=== PATIENT | male | born 1950 | race Caucasian/White ===

== ENCOUNTER 2017-07-11 12:39 | Emergency (ER) | payer OTHER, MEDICARE, SELFPAY ==
[2017-07-11 12:40] VITALS: BP 174/106; PULSE 88; RESP 16; TEMP 36.2; O2SAT 99; BMI 33.5
[2017-07-11 12:42] VITALS: O2SAT 99
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
[2017-07-11 13:30] VITALS: BP 169/84; PULSE 77; RESP 16; O2SAT 99
== END 2017-07-11 13:30 | disposition home or self-care (01) ==
LOC: ED 13:29
PROVIDERS: Emergency Provider Emergency Medicine; Family Provider Family Medicine; PCP Family Medicine
DX: Z00.00 Encounter for general adult medical examination without abnormal findings (principal); V53.5XXA Driver of pick-up truck or van injured in collision with car, pick-up truck or van in traffic accident, initial encounter; Y93.I9 Activity, other involving external motion; Y92.410 Unspecified street and highway as the place of occurrence of the external cause; Y99.8 Other external cause status
CPT/HCPCS: 99284

== ENCOUNTER → 2017-07-23 09:06 | Outpatient (CLI) | payer MEDICARE, OTHER, SELFPAY ==
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
== END ==
PROVIDERS: Family Provider Family Medicine; PCP Family Medicine; Visit Provider Family Medicine
DX: M54.5 Low back pain (principal)
CPT/HCPCS: 72110

== ENCOUNTER 2017-11-01 09:30 | Outpatient (RCR) | payer MEDICARE, OTHER, SELFPAY ==
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
--- NOTE | 2017-11-28 09:20 | HP.PT.NRP ---
HP - Discharge Summary (1) - Patient Information LO SHUKLA was seen in my office for initial evaluation on 10/12/17. The following Plan of Care was established for this patient: Initial Frequency: 2x /Week Initial Duration: 4 Weeks - Anticipated Interventions Patient/Client Instruction: Educate patient on: Benefits of Fitness Program For the Purpose of:: To improve ability to perform ADL's Therapeutic Exercise to Include: Strength training, Endurance training, Body mechanics, Postural training, Flexibilty training, Gait and locomotor training, Dynamic Lumbar Stabilization, Bud Exercises For the Purpose of:: To improve muscle performance and motor function TENS: Yes Cryotherapy (ice pack, ice massage): Yes Thermo therapy (hot pack): Yes Ultrasound (thermal/non thermal): Yes For the Purpose of:: To decrease pain This patient was last seen in our office . Pertinent comments regarding their Physical therapy will appear below: Patient has not attended physical therapy in over 30 days and is appropriate for d/c- return to MD as needed. At this point I will be discontinuing this patient from physical therapy. I would be happy to see this patient again in the future if found appropriate by the physician. Thank you! Minoo Marroquin
== END 2017-11-01 19:00 | disposition home or self-care (01) ==
LOC: PT 09:30
PROVIDERS: Family Provider Family Medicine; PCP Family Medicine; Visit Provider Family Medicine
DX: M54.5 Low back pain (principal)
CPT/HCPCS: 97035; 97110; 97162

== ENCOUNTER 2018-06-28 12:42 | Inpatient (IN) | payer MEDICARE, OTHER, SELFPAY ==
[2018-06-28] VITALS (11 sets, daily range): BP systolic 99–141; BP diastolic 62–93; PULSE 48–80; RESP 16–18; TEMP 36.4–37; O2SAT 98–100; BMI 29.7; BMI 28.9
--- NOTE | 2018-06-28 08:00 | COLBX_PTH ---
PATIENT: LO SHUKLA LOC: [facility] U#:[id number] AGE/SX: 68/M ROOM: MT313 RE06/28/[address]: Dr. Guillaume Berg MD : 1950 BED: 1 DIS: 07/03/2018 SPEC #: [id number] RECD: 06/28/18 10:53 STATUS: SHARRON RECruz #: [id number] MELI: 06/28/18 08:[address]: Guillaume Berg DEPT: SURGICAL PATHOLOGY RECD BY: Yovany Miller ENTERED: 06/28/18 12:13 SP TYPE: COLON BX OTHR DR: Dr. 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 AM:zulma 07/01/18 MICROSCOPIC DESCRIPTION Slides are reviewed. GROSS DESCRIPTION Received is one container labeled with the patient name and designated colon mass biopsy at 80 cm. The specimen consists of multiple irregular fragments of light hollis soft tissue that in aggregate measure 2 x 1 x 0.1 cm. The specimen is totally submitted in one cassette. / AM:sp 06/29/18 TC: 0 CPT: 15058
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
--- NOTE | 2018-06-28 08:32 | CT_ITS ---
STUDY: CT ABDOMEN AND PELVIS WITH CONTRAST REASON FOR EXAM: Male, 68 years old. Colonic mass marked with a metallic clip during colonoscopy. RADIATION DOSAGE (If Supplied By Facility): CTDIvol = ( 15.50 ) mGy, DLP = ( 959.53 ) mGycm TECHNIQUE: Transaxial images were obtained from the dome of the diaphragm to the symphysis pubis with oral contrast. 100ML ml of Isovue 300 contrast was administered. Sagittal and coronal images were reconstructed. Individualized dose optimization techniques were used for this CT. COMPARISON: None. FINDINGS: The visualized lung bases are unremarkable. The visualized portions of the heart are within normal limits. There is decreased attenuation of the liver consistent with steatosis. Normal gallbladder and extrahepatic biliary system. Normal spleen. Normal pancreas. Normal bilateral adrenal glands. Normal right kidney. Normal left kidney. There is a small hiatal hernia. There is a 2 cm x 3 cm diverticulum in the second portion of the duodenum. A metallic clip is seen in the rectosigmoid junction. There is focal narrowing of the colon at the rectosigmoid junction where the metallic clip is seen. Proximal to this, there is what appears to be fluid distention of the ascending colon distal to the splenic flexure. Scattered sigmoid diverticula are seen as well. The appendix is visualized and appears normal. There is scattered atherosclerotic calcification of the abdominal aorta, without a demonstrated aneurysm. Normal inferior vena cava. Normal retroperitoneum. Normal urinary bladder. There is enlargement of the prostate gland. It measures 4.9 cm x 4.2 cm. Normal abdominal wall. There are diffuse degenerative changes of the visualized lumbar spine. Grade 1 anterolisthesis of L4 on L5 with spondylolysis of the pars interarticularis of the L4 vertebrae. CT/Abdomen/Pelvis WITH Contrast IMPRESSION: Findings suggestive of a stenosis at the rectosigmoid junction at the place of the visualized clip with the fluid distention of the ascending colon. Diverticulum of second portion of duodenum. Fatty infiltration of the liver. Electronically Signed: Angel Villareal MD at 11:33 EST Tel [phone], Service support ,
--- NOTE | 2018-06-28 08:43 | PCM.PN.BLA ---
Progress Note The patient had a large mass in his colon at 80 cm. I was unable to get past this mass. It was partially obstructing. The mass did bleed and was very friable with biopsies. Several cold forceps biopsies were obtained and a clip was placed for placement. I will order a stat CBC and CMP and CEA. I am ordering a stat CT with oral and IV contrast. Depending on CT I may admit him for colectomy on Sunday. If there are any other findings or liver lesions I will await biopsy results. Guillaume Berg MD Pager: [facility] [address] [place] [address], [address] [place] [address] Office:
[2018-06-28 08:52] LABS: Absolute Lymphocyte Count 1.19 X10^3/ul (0.83-4.51); Absolute Neutrophil Count 3.4 X10^3/uL (2.0-7.7); Basophil# 0.02 X10^3/uL; Basophil% 0.4 % (0-1); Differential Indicated SCAN CRITERIA MET; Eosinophil# 0.19 X10^3/uL; Eosinophils% 3.6 % (0-5); Hematocrit 41.8 % (40-54); Hemoglobin 13.4 g/dl (13.0-16.5); Lymphocyte # 1.19 X10^3/ul (4.0); Lymphocyte % 22.8 % (19-41); Mean Corp Hgb Conc 32.1 g/gl (32-36); Mean Corpuscular Hgb 30.5 pg (27.0-32.0); Mean Platelet Vol. 10.8 fl (6.2-12.0); Monocyte# 0.37 X10^3/uL; Monocyte% 7.1 % (0-10); Neutrophil # 3.43 X10^3/uL (2.7-7.7); Neutrophil % 65.7 % (47-70); POSITIVE COUNT NO; POSITIVE DIFFERENTIAL NO; POSITIVE MORPHOLOGY YES; Platelet Count 150 K/mm3 (150-450); RBC Distribution Width CV 13.2 % (11.6-14.6); RBC Distribution Width SD 45.6 fl (35.1-43.9); White Blood Count 5.2 K/mm3 (4.4-11.0)
[2018-06-28 09:49] LABS: ALB/GLOB Ratio 1.7 RATIO (0.9-2.4); AST(SGOT) 29 U/L (15-37); Alanine Aminotransfer ALT/SGPT 15 U/L (16-61); Albumin, Serum 3.3 g/dL (3.2-5.0); Alkaline Phosphatase 71 U/L (45-117); Anion Gap 8 (5-15); BUN 15 mg/dL (7-18); BUN/Creat Ratio 20.3 RATIO (10-20); Calcium,Total 8.3 mg/dL (8.5-10.1); Chloride 112 mmol/L (98-107); Creatinine, Serum 0.74 mg/dL (0.70-1.30); EST Glomerular Filtration Rate 113 mL/min (>60); Est Glom Filt Rate - Afr Amer 137 mL/min (>60); Estimated Creatinine Clearance 79.76 ml/min; Globulin 1.9 g/dL (2.2-4.2); Glucose 104 mg/dL (74-106); Protein, Total 5.2 g/dL (6.4-8.2); Sodium Level 143 mmol/L (136-145)
--- NOTE | 2018-06-28 13:02 | PCM.PN.BLA ---
Progress Note Clinical Impression(s) from Imaging Studies Abdomen/Pelvis CT 06/28/18 08:32 IMPRESSION: Findings suggestive of a stenosis at the rectosigmoid junction at the place of the visualized clip with the fluid distention of the ascending colon. Diverticulum of second portion of duodenum. Fatty infiltration of the liver. Electronically Signed: Angel Villareal MD at 11:33 EST Tel [phone], Service support , The patient had colonoscopy today which showed a colon mass. Subsequent CT scan showed this is a partially obstructing colon mass in the sigmoid colon. I discussed the patient's treatment options with him. This is likely a carcinoma. As it is partially obstructing, it will need to be removed. The CT scan did not show any signs of distant metastases. I will keep him in the hospital on clear liquids over the weekend and take him Sunday morning for laparoscopic left hemicolectomy. I explained surgery in detail to the patient and his son. I explained the entire procedure including possibility of a stoma as well as possibility of converting to an open procedure. I explained the risks of the procedure including but not limited to bleeding, infection, anastomotic leak, injury to the ureter, gonadal vessels, surrounding bowel. The patient understands the risks and is willing to proceed with surgery on Sunday. I have ordered a type and screen as well as a CBC and a BMP for Sunday. The patient will be on clear liquids over the weekend and n.p.o. after midnight on Sunday. The patient will be given Ensure clears in accordance with a rest protocol. The patient has been prescribed p.o. antibiotic bowel prep. The patient has already been mechanically bowel prepped for his colonoscopy but I will give him a bottle of magnesium citrate on Sunday to continue to keep the colon clear of stool. Guillaume Berg MD Pager: [facility] [address] [place] [address] [address] [place] [address] Office:
--- NOTE | 2018-06-28 13:06 | PN_ITS ---
Progress Note Clinical Impression(s) from Imaging Studies Abdomen/Pelvis CT 06/28/18 08:32 IMPRESSION: Findings suggestive of a stenosis at the rectosigmoid junction at the place of the visualized clip with the fluid distention of the ascending colon. Diverticulum of second portion of duodenum. Fatty infiltration of the liver. Electronically Signed: Angel Villareal MD at 11:33 EST Tel [phone], Service support , The patient had colonoscopy today which showed a colon mass. Subsequent CT scan showed this is a partially obstructing colon mass in the sigmoid colon. I discussed the patient's treatment options with him. This is likely a carcinoma. As it is partially obstructing, it will need to be removed. The CT scan did not show any signs of distant metastases. I will keep him in the hospital on clear liquids over the weekend and take him Sunday morning for laparoscopic left hemicolectomy. I explained surgery in detail to the patient and his son. I explained the entire procedure including possibility of a stoma as well as possibility of converting to an open procedure. I explained the risks of the procedure including but not limited to bleeding, infection, anastomotic leak, injury to the ureter, gonadal vessels, surrounding bowel. The patient understands the risks and is willing to proceed with surgery on Sunday. I have ordered a type and screen as well as a CBC and a BMP for Sunday. The patient will be on clear liquids over the weekend and n.p.o. after midnight on Sunday. The patient will be given Ensure clears in accordance with a rest protocol. The patient has been prescribed p.o. antibiotic bowel prep. The patient has already been mechanically bowel prepped for his colonoscopy but I will give him a bottle of magnesium citrate on Sunday to continue to keep the colon clear of stool. Guillaume Berg MD Pager: [facility] [address] [place] [address] [address] [place] [address] Office:
[2018-06-28] MEDS: 0.9% Normal Saline 1,000 ML 100 ML IV (13:42)
--- NOTE | 2018-06-28 14:46 | CASEMGMT ---
CEDRIC ZAVALA Assessment Presentation: pt presented for colonoscopy which showed obstructing mass. Admitted for surgery on Sunday. Concerns for complications r/t mass. Pt will be on clear liquids. Introduced role of CM to patient. Emotional support given re: surgery sunday and post op care. Questions answered. Pt is calm but concerned with diagnosis and upcoming surgery. RN SALLY let pt know case management would be available for any dc needs that may arise. PCP: [facility] Prescription Benefit: yes LNOK: SonMatt Living Arrangements: One story home, few steps in. Pt lives alone, independent in ADL's. States can have family assist on dc if needed. Transportation: pt drives. DME: none HHS/SNF in past: none DC PLAN: undetermined. Will follow post op for any dc planning needs. Arnoldo MORENON RN ACM
[2018-06-28] MEDS: Venlafaxine XR 75 MG Capsule PO (18:27)
[2018-06-28] MEDS: Ensure Surgery 237 ML LIQUID PO (22:16)
[2018-06-28] MEDS: Acetaminophen 325 MG Tablet 650 MG PO (22:23)
[2018-06-29] MEDS: 0.9% Normal Saline 1,000 ML 100 ML IV ×3 (00:18→20:35)
[2018-06-29 05:12] VITALS: BP 123/86; PULSE 54; RESP 16; TEMP 36.8; O2SAT 95
[2018-06-29] MEDS: Ensure Surgery 237 ML LIQUID PO ×3 (05:12→20:39)
[2018-06-29 08:54] VITALS: BP 135/83; PULSE 57; RESP 16; TEMP 37.1; O2SAT 96
[2018-06-29] MEDS: Enoxaparin 40 MG/0.4 ML Syringe SC (08:57)
[2018-06-29] MEDS: Pantoprazole Sodium 40 MG Tablet PO (08:57)
[2018-06-29] MEDS: 0.9% NaCl Peripheral Flush Adult/Peds IV (09:56)
--- NOTE | 2018-06-29 10:22 | PCM.PN.SRG ---
Subjective: No complaints of abdominal pain. No nausea no vomiting. Objective: Diminished soft and nontender - Physical Exam Vital Signs Temp Pulse Resp BP Pulse Ox 98.7 F 57 L 16 135/83 H 96 06/29/18 08:54 06/29/18 08:54 06/29/18 08:54 06/29/18 08:54 06/29/18 08:54 Oxygen Delivery Method Room Air Weight: 213 lb 2.992 oz Body Mass Index (BMI) 28.9 Intake and Output for Last 24 Hours 06/27/18 06/28/18 06/29/18 23:59 23:59 23:59 Intake Total 2537 / 2537 1796 / 1796 Balance 2537 / 2537 1796 / 1796 Medical Necessity - Tobacco Use Smoking Status: Former smoker Tobacco Use: Non-smoker Assessment/Plan Patient will remain on liquids until surgery on Sunday
[2018-06-29 10:52] LABS: Carcinoembryonic Antigen 2.1 ng/mL (0.0-4.7)
[2018-06-29 13:45] VITALS: BP 115/82; PULSE 79; RESP 16; TEMP 36.9; O2SAT 99
[2018-06-29 20:44] VITALS: BP 140/89; PULSE 55; RESP 16; TEMP 36.6; O2SAT 100
[2018-06-29] MEDS: Venlafaxine XR 75 MG Capsule PO (22:14)
[2018-06-29] MEDS: Acetaminophen 325 MG Tablet 650 MG PO (22:14)
[2018-06-30 02:35] VITALS: BP 113/76; PULSE 66; RESP 16; TEMP 36.6; O2SAT 97
[2018-06-30] MEDS: 0.9% Normal Saline 1,000 ML 100 ML IV ×2 (06:14→17:39)
[2018-06-30] MEDS: Ensure Surgery 237 ML LIQUID PO ×3 (06:15→21:25)
--- NOTE | 2018-06-30 08:11 | PCM.PN.SRG ---
Subjective: Patient sleeping no adverse events overnight. Objective: Abdomen is soft - Physical Exam Vital Signs Temp Pulse Resp BP Pulse Ox 97.9 F 66 16 113/76 97 06/30/18 02:35 06/30/18 02:35 06/30/18 02:35 06/30/18 02:35 06/30/18 02:35 Oxygen Delivery Method Room Air Weight: 213 lb 2.992 oz Body Mass Index (BMI) 28.9 Intake and Output for Last 24 Hours 06/28/18 06/29/18 06/30/18 23:59 23:59 23:59 Intake Total 2537 / 2537 4978 / 4978 1103 / 1103 Output Total 2 / 2 Balance 2537 / 2537 4978 / 4978 1101 / 1101 Laboratory Tests Past 24 Hrs 06/28/18 08:44 Carcinoembryonic Ag 2.1 Medical Necessity - Tobacco Use Smoking Status: Former smoker Tobacco Use: Non-smoker Assessment/Plan Patient will remain on liquids until surgery on Sunday
[2018-06-30 08:25] VITALS: BP 132/85; PULSE 69; RESP 16; TEMP 36.3; O2SAT 99
[2018-06-30] MEDS: Pantoprazole Sodium 40 MG Tablet PO (08:34)
[2018-06-30] MEDS: Enoxaparin 40 MG/0.4 ML Syringe SC (08:35)
[2018-06-30] MEDS: Magnesium Citrate 300 ML PO (13:19)
[2018-06-30] MEDS: 0.9% NaCl Peripheral Flush Adult/Peds IV ×2 (13:19→21:30)
[2018-06-30] MEDS: metroNIDAZOLE 500 MG Tablet 1000 MG PO ×3 (13:20→23:06)
[2018-06-30 14:15] VITALS: BP 120/81; PULSE 65; RESP 14; TEMP 36.4; O2SAT 100
[2018-06-30 20:09] VITALS: BP 131/82; PULSE 65; RESP 16; TEMP 36.9; O2SAT 99
[2018-06-30] MEDS: Venlafaxine XR 75 MG Capsule PO (21:25)
[2018-06-30] MEDS: Acetaminophen 325 MG Tablet 650 MG PO (21:27)
[2018-07-01] VITALS (13 sets, daily range): BP systolic 105–137; BP diastolic 69–97; PULSE 55–70; RESP 14–16; TEMP 36.5–37.1; O2SAT 96–100; BMI 28.9
--- NOTE | 2018-07-01 | COL._PTH ---
PATIENT: LO SHUKLA LOC: MS3 U#:[id number] AGE/SX: 68/M ROOM: PR313 RE06/28/[address]: Dr. Guillaume Berg MD : 1950 BED: 1 DIS: 07/03/2018 SPEC #: [id number] RECD: 07/01/18 14:43 STATUS: SHARRON RECruz #: [id number] MELI: 07/01/18 00:[address]: Guillaume Berg DEPT: SURGICAL PATHOLOGY RECD BY: Matt Cerna ENTERED: 07/01/18 14:43 SP TYPE: COLON OTHR DR: Dr. Alistair Townsend MD Tissues: Colon, NOS Procedures: Surgery Specimen Level HEADER OPERATION: Colonoscopy (MAC) PRE-OP DIAGNOSIS: Screening TISSUE SUBMITTED: Sigmoid colon - suture vuong proximal margin MICROSCOPIC DIAGNOSIS Sigmoid colon, segmental colectomy: Invasive moderately differentiated adenocarcinoma. See cancer checklist below. AM:arun 07/03/18 COMMENT COLON CANCER SUMMARY: Specimen - sigmoid colon Procedure - sigmoidectomy Tumor site - sigmoid colon Tumor size - 7.5 x 4 x 1.6 cm Macroscopic tumor perforation - not identified Histologic type - adenocarcinoma Histologic grade - low grade (moderately differentiated) Microscopic tumor extension - tumor invades through muscularis propria into subserosal tissue. Margins: Proximal margin - uninvolved by carcinoma. Distal margin - closest mucosal margin uninvolved by carcinoma and 3.5cms from tumor. Circumferential margin - uninvolved by carcinoma. Treatment effect - unknown Lymph-Vascular invasion - not identified Perineural invasion - not identified Tumor deposits - not present Number of lymph nodes examined - 25 Number of lymph nodes involved by carcinoma - 0 (none) Microsatellite instability - No microsatellite instability detected. Negative (no loss of mismatch protein); (See microsatellite instability study by IHC ,[id number] for complete details). Immunohistochemistry Studies for Mismatch Repair Proteins: MLH1 - Intact nuclear positivity, tumor cells MSH2 - Intact nuclear positivity, tumor cells MSH6 - Intact nuclear positivity, tumor cells PMS2 - Intact nuclear positivity, tumor cells PATHOLOGIC STAGE: pT3 N0 Mx The above summary is in compliance with [employer] (CAP) Cancer Protocols Checklist and [place] Joint Committee on Cancer (AJCC), Staging Manual, 8th Ed. Case has been reviewed in consultation with Dr. Loya who concurs with the above diagnosis. IDC:CE Reference is made to the patient's previous sigmoid colon mass biopsy in which dysplastic colonic epithelium consistent with well differentiated adenocarcinoma was identified ([id number]) MICROSCOPIC DESCRIPTION Slides are reviewed. GROSS DESCRIPTION Received in fixative is one container labeled with the patient's name and designated sigmoid colon. The specimen consists of a segment of bowel measuring 15 cm in length. Located 5 cm from the proximal mucosal margin of excision and 3.5 cm from the distal mucosal margin of excision is a firm, pink-white fungating mass that occupies 100% of the circumference of the bowel and measures 7.5 x 4 x 1.6 cm. The uninvolved mucosa is hollis-pink and thrown into normal folds. No other masses are identified. The serosa in the area of the mass is inked in black ink. A small amount of yellow fibro-fatty tissue is adherent to the serosal surface. Serial sections of the mass do not reveal extension of neoplasm into the surrounding adipose tissue. Also present in the specimen container are two mucosal donuts each with an average diameter of 3 cm and maximal thickness of 1 cm. Also present free in the container is an irregular fragment of light hollis mucosal tissue with attached fatty tissue measuring 3.5 x 2 x 1 cm. No mass lesions are identified in any of these separate fragments of tissue. The mucosal tissue not identified as donut contains a metallic suture. The attached fibrofatty tissue contains a number of nodules resembling lymph nodes. Professor Of Counseling sections are submitted in eight cassettes as follows: 1??mucosal donuts, 2 - segment of bowel with staple, 3 - proximal and distal mucosal margins (distal margin inked black), 4-8 - tumor. / AM:arun 07/02/18 TC:0 CPT: 09209
--- NOTE | 2018-07-01 | IMM_PTH ---
PATIENT: LO SHUKLA LOC: MS3 U#:[id number] AGE/SX: 68/M ROOM: CA313 RE06/28/[address]: Dr. Guillaume Berg MD : 1950 BED: 1 DIS: 07/03/2018 SPEC #: [id number] RECD: 07/03/18 12:53 STATUS: SHARRON REQ #: [id number] MELI: 07/01/18 00:[address]: Guillaume Berg DEPT: IMMUNOHISTOCHEMISTRY RECD BY: Anju Deras ENTERED: 07/03/18 12:55 SP TYPE: IMMUNO OTHR DR: Dr. Alistair Townsend MD Tissues: Sigmoid colon biopsy Procedures: MLH-1 (add) MSH6 (add) Anti-PMS2 (add) GHOSH-2 (add) HER2 PARISA (add) KI-67 (add) P53 (add) MSH2 (initial) PHYSICIAN & INSTITUTION [place] [id number] SPECIMEN INFORMATION: Tissue Source: Sigmoid colon Clinical Info: Screening Specimen Number: [id number] #8 CPT code: 47007, 71539 x7 METHODOLOGY: Deparaffinized sections of prefer/formalin-fixed tissue or PAP/DQ stained slides are incubated with monoclonal/polyclonal antibodies/oligonucleotide probes. Localization is made via biotin free immunoperoxidase method. Appropriate controls are performed and reacted as expected. Results on target cell population are indicated in the following table: RESULTS: ANTIBODY / CLONE RESULT Block 8 MLH1 (M1) positive MSH2 (25D12) positive MSH6 (44) positive PMS2 (URQ4247) positive Ki-67 (30-9) positive, moderate to high P53 (DO-7) positive, 3% dim GHOSH-2 (SP21) positive, dim Her-2neu (CB11) negative These tests were developed and their performance characteristics determined by [facility]. They may not have been cleared or approved by the U.S. Food and Drug Administration. The FDA has determined that such clearance or approval is not necessary. INTERPRETATION: Sigmoid colon, segmental colectomy: Result of Microsatellite Instability Study: Negative (no loss of mismatch protein; no microsatellite instability detected). AM:arun 07/04/18
[2018-07-01] MEDS: 0.9% Normal Saline 1,000 ML 100 ML IV (04:30)
[2018-07-01 06:00] LABS: Anion Gap 7 (5-15); BUN 4 mg/dL (7-18); BUN/Creat Ratio 5.4 RATIO (10-20); Calcium,Total 8.6 mg/dL (8.5-10.1); Chloride 113 mmol/L (98-107); Creatinine, Serum 0.74 mg/dL (0.70-1.30); EST Glomerular Filtration Rate 113 mL/min (>60); Est Glom Filt Rate - Afr Amer 137 mL/min (>60); Estimated Creatinine Clearance 79.76 ml/min; Glucose 94 mg/dL (74-106); Potassium 3.4 mmol/L (3.5-5.1); Sodium Level 147 mmol/L (136-145)
[2018-07-01 06:25] LABS: Absolute Lymphocyte Count 1.93 X10^3/ul (0.83-4.51); Absolute Neutrophil Count 3.6 X10^3/uL (2.0-7.7); Basophil# 0.04 X10^3/uL; Basophil% 0.6 % (0-1); Eosinophil# 0.23 X10^3/uL; Eosinophils% 3.7 % (0-5); Hematocrit 41.3 % (40-54); Hemoglobin 13.4 g/dl (13.0-16.5); Lymphocyte # 1.93 X10^3/ul (4.0); Lymphocyte % 30.9 % (19-41); Mean Corp Hgb Conc 32.4 g/gl (32-36); Mean Corpuscular Hgb 30.5 pg (27.0-32.0); Mean Corpuscular Volume 93.9 fL (80-94); Mean Platelet Vol. 10.7 fl (6.2-12.0); Monocyte# 0.45 X10^3/uL; Monocyte% 7.2 % (0-10); Neutrophil # 3.59 X10^3/uL (2.7-7.7); Neutrophil % 57.4 % (47-70); Platelet Count 162 K/mm3 (150-450); RBC Distribution Width SD 43.5 fl (35.1-43.9); White Blood Count 6.3 K/mm3 (4.4-11.0)
[2018-07-01 06:42] LABS: POSITIVE COUNT NO; POSITIVE DIFFERENTIAL NO; POSITIVE MORPHOLOGY NO
[2018-07-01] MEDS: Ensure Surgery 237 ML LIQUID PO (06:44)
[2018-07-01] MEDS: Pantoprazole Sodium 40 MG Tablet PO (07:21)
--- NOTE | 2018-07-01 08:28 | EKG12_ITS ---
Test Reason : PRE OP Blood Pressure : / mmHG Vent. Rate : 061 BPM Atrial Rate : 061 BPM P-R Int : 194 ms QRS Dur : 088 ms QT Int : 404 ms P-R-T Axes : 068 009 035 degrees QTc Int : 406 ms Sinus rhythm with Premature atrial complexes Otherwise normal ECG Confirmed by MANN WEBB, PURA ([id number]), senior editor EDVIN CHRIS ([id number]) on 07/03/2018 1:55:48 PM Referred By: Guillaume Berg Confirmed By:PURA DARNELL MD
[2018-07-01] MEDS: Potassium Chloride 10mEq/100mL 10 MEQ/100 ML IV.SOLN. 100 MEQ IV BOLUS ×4 (08:32→12:28)
[2018-07-01] MEDS: 0.9% NaCl Peripheral Flush Adult/Peds IV (08:45)
--- NOTE | 2018-07-01 08:49 | PN.SURG_ITS ---
Subjective: Patient is doing well this morning. Has no complaints. He is having liquid bowel movements. - Physical Exam General: Alert, Oriented x3, Cooperative, No apparent distress Neck: No JVD Lungs: Normal air movement Cardiovascular: Regular rate, Regular Rhythm Abdomen: Soft, Non Tender, Non-Distended Musculoskeletal: No Tenderness to Palpation of Joints or Extremities Vital Signs Temp Pulse Resp BP Pulse Ox 97.9 F 70 16 122/78 H 98 07/01/18 02:17 07/01/18 02:17 07/01/18 02:17 07/01/18 02:17 07/01/18 02:17 Oxygen Delivery Method Room Air Weight: 213 lb 2.992 oz Body Mass Index (BMI) 28.9 Intake and Output for Last 24 Hours 06/29/18 06/30/18 07/01/18 23:59 23:59 23:59 Intake Total 4978 / 4978 2324 / 2324 1845 / 1845 Output Total 2 / 2 Balance 4978 / 4978 2322 / 2322 1845 / 1845 Laboratory Tests Past 24 Hrs 07/01/18 07/01/18 07/01/18 05:24 05:24 05:24 WBC 6.3 RBC 4.40 L Hgb 13.4 Hct 41.3 MCV 93.9 MCH 30.5 MCHC 32.4 RDW 13.0 RDW Differential 43.5 Plt Count 162 MPV 10.7 Immature Gran % (Auto) 0.200 Neut % (Auto) 57.4 Lymph % (Auto) 30.9 Wise % (Auto) 7.2 Eos % (Auto) 3.7 Baso % (Auto) 0.6 Absolute Neuts (auto) 3.6 Absolute Lymphs (auto) 1.93 Total Counted Not Reportable Sodium 147 H Potassium 3.4 L Chloride 113 H Carbon Dioxide 27.0 Anion Gap 7 BUN 4 L Creatinine 0.74 Estim Creat Clear Calc 79.76 Est GFR (MDRD) Af Amer 137 Est GFR (MDRD) Non-Af 113 BUN/Creatinine Ratio 5.4 L Glucose 94 Calcium 8.6 Blood Type O POSITIVE Antibody Screen NEGATIVE Medical Necessity - Tobacco Use Smoking Status: Former smoker Tobacco Use: Non-smoker Assessment/Plan 68-year-old male with a near obstructing mass of the distal descending colon. 1. Patient is doing well this morning. I went over surgery once again with him as well as the risks and benefits of the surgery. I answered all questions. 2. Patient had antibiotic bowel prep as well as some mag citrate to refresh his colon cleaning yesterday. The patient is showing no signs of complete obstruction. Plan for laparoscopic left hemicolectomy this afternoon. Guillaume Berg MD Pager: [facility] [address] [place] [address] [address] [place] [address] Office:
--- NOTE | 2018-07-01 08:53 | NURSING ---
in reviewing [facility] colorectal order set, called Aubree in AC to double check if floor nursing staff was to initiate and order AC orders or if they would address them. Aubree stated that AC would address as long and we only need to have the pt prepped and ready.
--- NOTE | 2018-07-01 10:06 | NURSING ---
report called to Apoorva in AC. aware that pt has [facility] Riders ordered and running with NS. pt transported down at this time.
[2018-07-01] MEDS: Bupivacaine 0.25% 30 ML Vial (10:29)
[2018-07-01] MEDS: Gabapentin 600 MG Tablet PO (10:30)
[2018-07-01] MEDS: Acetaminophen 500 MG Tablet 1000 MG PO ×2 (10:30→16:16)
[2018-07-01] MEDS: Lactated Ringers 1,000 ML 40 ML IV ×2 (10:40→15:40)
[2018-07-01] MEDS: Magnesium Sulfate 4gm/100mL 4 GM/100 ML IV.SOLN. IV (10:40)
[2018-07-01] MEDS: Ciprofloxacin 400 MG/200 ML BAG 200 MG IV (10:51)
[2018-07-01] MEDS: Lidocaine/D5W 2,000 MG/250 ML IV.SOLN 29.01 MG IV (11:25)
[2018-07-01] MEDS: BUPIVACAINE LIPOSOME/PF 20 ML VIAL OPERA.SITE (14:00)
--- NOTE | 2018-07-01 15:54 | OP.PCM_ITS ---
Problem List (1) Obstruction of colon Status: Acute (2) Colonic mass Status: Acute Report of Operation Date of Procedure: 07/01/18 Pre-Operative Diagnosis: Partial obstructing colon mass in the sigmoid colon Post-Operative Diagnosis: Same Surgery/Procedure Performed:: Laparoscopic sigmoid colectomy with anastomosis. Splenic flexure release Specimen's removed: Sigmoid colon Description of Procedure: The patient was brought back to the operating room and general anesthesia was induced. Delvalle catheter was placed. The patient was placed into stirrups. Next the abdomen was prepped and draped in usual sterile fashion. An incision was made superior to the umbilicus and deepened to the level of the fascia. The fascia was elevated and incised. A finger sweep was performed and a 12 mm port was placed into the abdomen and the abdomen was insufflated to 15 mmHg. Next a tap block was performed. This was done with a 25-gauge spinal needle under direct visualization laparoscopically. This was done bilaterally from the ASIS to the inferior portion of the ribs and then across the inferior costal margin. This was done at 1 cm intervals bilaterally. Next port sites were localized in the right lower quadrant and the right middle abdomen. These sites were anesthetized with the tap block mixture and then a 12 mm port was placed into the right lower quadrant under direct visualization and a 5 mm port was placed in the right mid abdomen. Next a another 5 mm port was placed in the left lower quadrant. The abdomen was inspected and there is no signs of metastasis and the liver appeared normal. Next the sigmoid colon was identified and grasped. It was retracted medially and the mass was identified easily. The lateral attachments were taken down with the Enseal device on the white line of Toldt. This was taken inferiorly and superiorly. Next the majority of the splenic flexure was released using the Enseal device. The left colic pedicle was then put onto tension and held anteriorly and scissors were used to make a small bel in the peritoneum. This was extended to reveal the inferior mesenteric artery and left colic branch. The left colic branch was clipped twice below and once distally and taken with an energy device. Next superior to this the inferior mesenteric vein was identified and just above a branch coming from the splenic flexure the vein was taken. This was done with 2 clips and an energy device. This left the mesentery of the sigmoid colon fairly well open after the lateral dissection. The mass was held up and proximal and distal margins were measured and ensure that they would reach the midline and reach each other with no tension. Next the umbilical port was extended superiorly. This was done with electrocautery. A large wound retractor was placed into the wound. The colon was then delivered into the wound. About 10-12 cm proximal to the mass the colon was divided. This was done with a RADHA stapler. Distally a laurie clamp was placed on the proximal line and a bowel clamp was placed distally and the mid sigmoid was divided. The mass was sent for pathology with a suture marking the proximal margin. Next the distal opening was measured and a 31 sizer easily fit into the lumen. The 33 EEA stapler was selected. The anvil was placed into the distal colon and a 2-0 Prolene suture was used to create a pursestring. In the proximal colon a small colotomy was made proximal to the staple line in the tenia. The stapler was placed through this and to the staple line. The point was extended through the staple line. This was attached to the anvil and they were closed. It was ensure that nothing was caught below the staple line and that these were lined up in good anatomical position. The stapler was then fired and removed. There were good donuts. Next the anastomosis was inspected. There was a small area of bleeding on the mesenteric side. 3 interrupted 3-0 silk sutures were placed internally to create hemostasis. Next the colotomy was closed with a running 3-0 PDS suture followed by a second layer of interrupted 3-0 silk imbricating sutures. There was no stenosis and the anastomosis appeared widely patent. This was placed back in the abdomen and the abdomen was irrigated with saline and suction. Next the wound protector was twisted and the abdomen was reinsufflated. The colon was reinspected and the anastomosis appeared to have no tension on it and was easily mobile. There appeared to be no twisting of the bowel. There was good hemostasis in the abdomen. The wound retractor was removed and all staff changed into fresh gown and gloves. The patient was redraped with fresh towels and the fascia was closed with running #1 PDS suture starting at each end and meeting in the middle. Next the incision was irrigated and suctioned. The skin was anesthetized with the rest of the Exparel mixture as well as the port sites. In the right lower quadrant the 12 mm port fascia was closed with an interrupted 0 Vicryl suture. Next all incisions were closed with interrupted 4- 0 Monocryl sutures and Steri-Strips. Bandages were then applied. The patient's Delvalle remained at the end of the case. Patient was taken to PACU in stable condition. - Admit VTE Documentation VTE Mechan Device Prophylaxis: SCD's
[2018-07-01] MEDS: Ketorolac 15 MG/ML Vial IV (21:38)
[2018-07-01] MEDS: Docusate Sodium 100 MG Capsule PO (21:38)
[2018-07-01] MEDS: Venlafaxine XR 75 MG Capsule PO (21:38)
[2018-07-02] MEDS: Acetaminophen 500 MG Tablet 1000 MG PO ×4 (00:41→18:09)
--- NOTE | 2018-07-02 01:48 | NURSING ---
pt has been drowsy postop (no narcotics have been given)- using IS well, repositions self in bed, taking clears, but has not ambulated so far. Will attempt to get up to chair with next assessment.
[2018-07-02 05:01] VITALS: BP 98/56; PULSE 60; RESP 14; TEMP 37.8; O2SAT 98
[2018-07-02] MEDS: Ketorolac 15 MG/ML Vial IV ×3 (05:03→22:06)
[2018-07-02 05:50] LABS: Absolute Neutrophil Count 9.4 X10^3/uL (2.0-7.7); Hemoglobin 13.5 g/dl (13.0-16.5); Lymphocyte % 8.9 % (19-41); Mean Corp Hgb Conc 32.1 g/gl (32-36); Mean Corpuscular Hgb 30.3 pg (27.0-32.0); Mean Corpuscular Volume 94.4 fL (80-94); Mean Platelet Vol. 10.9 fl (6.2-12.0); Monocyte# 0.88 X10^3/uL; Monocyte% 7.8 % (0-10); Neutrophil # 9.36 X10^3/uL (2.7-7.7); Neutrophil % 83.1 % (47-70); Platelet Count 168 K/mm3 (150-450); RBC Distribution Width CV 13.2 % (11.6-14.6); Red Blood Count 4.45 M/mm3 (4.6-6.2); White Blood Count 11.3 K/mm3 (4.4-11.0)
[2018-07-02 06:03] LABS: POSITIVE COUNT NO; POSITIVE DIFFERENTIAL NO; POSITIVE MORPHOLOGY NO
[2018-07-02 06:16] LABS: Anion Gap 8 (5-15); BUN 8 mg/dL (7-18); BUN/Creat Ratio 8.4 RATIO (10-20); Calcium,Total 8.4 mg/dL (8.5-10.1); Chloride 109 mmol/L (98-107); Creatinine, Serum 0.95 mg/dL (0.70-1.30); EST Glomerular Filtration Rate 84 mL/min (>60); Est Glom Filt Rate - Afr Amer 102 mL/min (>60); Estimated Creatinine Clearance 83.95 ml/min; Glucose 118 mg/dL (74-106); Potassium 4.2 mmol/L (3.5-5.1); Sodium Level 142 mmol/L (136-145)
--- NOTE | 2018-07-02 06:50 | NURSING ---
pt did well walking to chair this am.
[2018-07-02 07:05] VITALS: O2SAT 98
[2018-07-02 07:33] VITALS: BP 101/62; PULSE 57; RESP 18; TEMP 37; O2SAT 98
--- NOTE | 2018-07-02 08:53 | PN.SURG_ITS ---
Patient Problems: Active and Suspected Problems Obstruction of colon (Acute) Colonic mass (Acute) Subjective: The patient seems to be doing well this morning. His pain is well controlled on the Tylenol and Toradol. He is not passing any flatus yet but he is not having any nausea or vomiting on clear liquids. - Physical Exam General: Alert, Oriented x3, Cooperative, No apparent distress HEENT: Atraumatic Lungs: Normal air movement Cardiovascular: Regular rate, Regular Rhythm Abdomen: Soft, Non-Distended, Tender - Mild tenderness no guarding or rebound Vital Signs Temp Pulse Resp BP Pulse Ox 98.6 F 57 L 18 101/62 98 07/02/18 07:33 07/02/18 07:33 07/02/18 07:33 07/02/18 07:33 07/02/18 07:33 Oxygen Flow Rate (L/min) 6 Oxygen Delivery Method Room Air Weight: 213 lb 2.992 oz Body Mass Index (BMI) 28.9 Intake and Output for Last 24 Hours 06/30/18 07/01/18 07/02/18 23:59 23:59 23:59 Intake Total 2324 / 2324 3740 / 3740 1432 / 1432 Output Total 2 / 1205 / 1205 1100 / 1100 Balance 2322 / 2322 2535 / 2535 332 / 332 Laboratory Tests Past 24 Hrs 07/02/18 07/02/18 05:22 05:22 WBC 11.3 H RBC 4.45 L Hgb 13.5 Hct 42.0 MCV 94.4 H MCH 30.3 MCHC 32.1 RDW 13.2 RDW Differential 44.0 H Plt Count 168 MPV 10.9 Immature Gran % (Auto) 0.200 Neut % (Auto) 83.1 H Lymph % (Auto) 8.9 L [place] % (Auto) 7.8 Eos % (Auto) 0.0 Baso % (Auto) 0.0 Absolute Neuts (auto) 9.4 H Absolute Lymphs (auto) 1.00 Total Counted Not Reportable Sodium 142 Potassium 4.2 Chloride 109 H Carbon Dioxide 25.0 Anion Gap 8 BUN 8 Creatinine 0.95 Estim Creat Clear Calc 83.95 Est GFR (MDRD) Af Amer 102 Est GFR (MDRD) Non-Af 84 BUN/Creatinine Ratio 8.4 L Glucose 118 H Calcium 8.4 L Medical Necessity - Tobacco Use Smoking Status: Former smoker Tobacco Use: Non-smoker Assessment/Plan All Active Problems Obstruction of colon (Acute) Colonic mass (Acute) 68-year-old male status post laparoscopic sigmoid colectomy 1. The patient is tolerating clear liquids. I will wait to advance his diet until he is passing flatus. 2. Urine output is good. DC Delvalle. 3. Pain is well controlled on Tylenol and Toradol. Creatinine normal. 4. Patient is slightly hypotensive this morning but he is not tachycardic. Hemoglobin is stable. White count is only slightly elevated which is likely from surgery. Continue to monitor. Guillaume Berg MD Pager: [facility] [address] [place] [address], [address] [place] [address] Office:
[2018-07-02] MEDS: Enoxaparin 40 MG/0.4 ML Syringe SC (10:49)
[2018-07-02] MEDS: Docusate Sodium 100 MG Capsule PO ×2 (10:49→22:05)
[2018-07-02] MEDS: Pantoprazole Sodium 40 MG Tablet PO (10:50)
[2018-07-02 14:00] VITALS: BP 118/76; PULSE 62; RESP 18; TEMP 37.2; O2SAT 98
[2018-07-02] MEDS: 0.9% NaCl Peripheral Flush Adult/Peds IV ×2 (15:00→22:07)
[2018-07-02 20:46] VITALS: BP 109/75; PULSE 55; RESP 16; TEMP 36.9; O2SAT 98
[2018-07-02] MEDS: Venlafaxine XR 75 MG Capsule PO (22:05)
[2018-07-03] MEDS: Acetaminophen 500 MG Tablet 1000 MG PO ×3 (00:43→11:06)
[2018-07-03 00:48] VITALS: BP 107/71; PULSE 55; RESP 16; TEMP 36.8; O2SAT 97
[2018-07-03 06:16] VITALS: BP 124/76; PULSE 52; RESP 16; TEMP 36.9; O2SAT 96
[2018-07-03] MEDS: Ketorolac 15 MG/ML Vial IV (06:24)
[2018-07-03 06:26] LABS: Absolute Lymphocyte Count 1.63 X10^3/ul (0.83-4.51); Absolute Neutrophil Count 5.2 X10^3/uL (2.0-7.7); Basophil# 0.02 X10^3/uL; Basophil% 0.3 % (0-1); Eosinophil# 0.19 X10^3/uL; Eosinophils% 2.5 % (0-5); Hematocrit 38.5 % (40-54); Hemoglobin 12.3 g/dl (13.0-16.5); Lymphocyte # 1.63 X10^3/ul (4.0); Lymphocyte % 21.2 % (19-41); Mean Corp Hgb Conc 31.9 g/gl (32-36); Mean Corpuscular Hgb 30.2 pg (27.0-32.0); Mean Corpuscular Volume 94.6 fL (80-94); Mean Platelet Vol. 11.1 fl (6.2-12.0); Monocyte% 7.8 % (0-10); Neutrophil # 5.23 X10^3/uL (2.7-7.7); Neutrophil % 68.1 % (47-70); Platelet Count 139 K/mm3 (150-450); RBC Distribution Width CV 13.1 % (11.6-14.6); Red Blood Count 4.07 M/mm3 (4.6-6.2); White Blood Count 7.7 K/mm3 (4.4-11.0)
[2018-07-03] MEDS: 0.9% NaCl Peripheral Flush Adult/Peds IV (06:26)
[2018-07-03 06:28] LABS: Anion Gap 7 (5-15); BUN 8 mg/dL (7-18); BUN/Creat Ratio 9.2 RATIO (10-20); Calcium,Total 8.2 mg/dL (8.5-10.1); Chloride 110 mmol/L (98-107); Creatinine, Serum 0.87 mg/dL (0.70-1.30); EST Glomerular Filtration Rate 93 mL/min (>60); Est Glom Filt Rate - Afr Amer 113 mL/min (>60); Estimated Creatinine Clearance 91.67 ml/min; Glucose 92 mg/dL (74-106); Potassium 3.9 mmol/L (3.5-5.1); Sodium Level 144 mmol/L (136-145)
[2018-07-03 06:37] LABS: POSITIVE COUNT NO; POSITIVE DIFFERENTIAL NO; POSITIVE MORPHOLOGY NO
[2018-07-03] MEDS: Docusate Sodium 100 MG Capsule PO (08:07)
[2018-07-03] MEDS: Enoxaparin 40 MG/0.4 ML Syringe SC (08:08)
[2018-07-03] MEDS: Pantoprazole Sodium 40 MG Tablet PO (08:08)
--- NOTE | 2018-07-03 08:11 | PN.SURG_ITS ---
Patient Problems: Active and Suspected Problems Obstruction of colon (Acute) Colonic mass (Acute) Subjective: Patient is doing well this morning and tolerating clear liquid diet. He is having no nausea or vomiting or bloating. He says he feels like gas is imminent and building. - Physical Exam General: Alert, Oriented x3, No apparent distress Lungs: Normal air movement Abdomen: Soft, Non Tender, Non-Distended Vital Signs Temp Pulse Resp BP Pulse Ox 98.5 F 52 L 16 124/76 H 96 07/03/18 06:16 07/03/18 06:16 07/03/18 06:16 07/03/18 06:16 07/03/18 06:16 Oxygen Flow Rate (L/min) 6 Oxygen Delivery Method Room Air Weight: 213 lb 2.992 oz Body Mass Index (BMI) 28.9 Intake and Output for Last 24 Hours 07/01/18 07/02/18 07/03/18 23:59 23:59 23:59 Intake Total 3740 / 3740 3338 / 3338 1400 / 1400 Output Total 1205 / 1205 2750 / 2750 Balance 2535 / 2535 588 / 588 1400 / 1400 Laboratory Tests Past 24 Hrs 07/03/18 07/03/18 05:44 05:44 WBC 7.7 RBC 4.07 L Hgb 12.3 L Hct 38.5 L MCV 94.6 H MCH 30.2 MCHC 31.9 L RDW 13.1 RDW Differential 44.0 H Plt Count 139 L MPV 11.1 Immature Gran % (Auto) 0.100 Neut % (Auto) 68.1 Lymph % (Auto) 21.2 [place] % (Auto) 7.8 Eos % (Auto) 2.5 Baso % (Auto) 0.3 Absolute Neuts (auto) 5.2 Absolute Lymphs (auto) 1.63 Total Counted Not Reportable Sodium 144 Potassium 3.9 Chloride 110 H Carbon Dioxide 27.0 Anion Gap 7 BUN 8 Creatinine 0.87 Estim Creat Clear Calc 91.67 Est GFR (MDRD) Af Amer 113 Est GFR (MDRD) Non-Af 93 BUN/Creatinine Ratio 9.2 L Glucose 92 Calcium 8.2 L Medical Necessity - Tobacco Use Smoking Status: Former smoker Tobacco Use: Non-smoker Assessment/Plan All Active Problems Obstruction of colon (Acute) Colonic mass (Acute) 68-year-old male status post sigmoid colon resection 1. Patient is doing well. I would advance him to a transitional diet. 2. If patient is tolerating a diet and passing gas this afternoon I will consider discharge. Guillaume Berg MD Pager: [facility] [address] [place] [address], [address] [place] [phone] Office:
[2018-07-03 11:20] VITALS: O2SAT 95
--- NOTE | 2018-07-03 12:16 | PCM.DC.REC ---
Discharge Diet: Soft diet Discharge Activity: Return to Normal Activity, May Shower Lifting Restrictions: 20 LBS FOR 4 weeks Call your doctor if your incision/area has: Continuous Slow Oozing, Sudden Increased Bleeding, Increased Pain/ Swelling, Increased Redness, Foul Smelling Discharge, Swelling at the incision site Call your doctor if you observe: Fever of 101 or Higher Allergies/Adverse Reactions: Allergies Penicillins [PCN] Allergy (Verified 06/24/18 09:17) Hives Medications to take at Discharge Multivitamin with Minerals [Multiple Vitamin] 1 each PO DAILY 06/24/18 [place]-3 Fatty Acids/Fish Oil [Fish Oil 1,000 mg Capsule] 1 each PO DAILY 06/24/18 Rosuvastatin Calcium [Crestor] 10 mg PO QHS 06/24/18 Venlafaxine HCl [Effexor] 75 mg PO DAILY 06/24/18 Docusate Sodium [Colace] 100 mg PO BID 10 Days #20 capsule 07/03/18 The following prescriptions were given: Docusate Sodium [Colace] 100 mg PO BID 10 Days #20 capsule Primary Care Physician: Alistair Townsend MD [Primary Care Provider] - Test Results: Test results from this visit will be discussed in further detail at your follow-up appointment, if applicable. Please Follow Up With: Guillaume Berg MD When: call to make 1 week follow up appt [phone]
[2018-07-03 13:00] VITALS: BP 124/88; PULSE 58; RESP 18; TEMP 36.3; O2SAT 100
--- NOTE | 2018-07-08 08:16 | DS.PCM_ITS ---
Discharge Date and Diagnosis Date of Admission: 06/28/18 Date of Discharge: 07/03/18 Hospital Course and Treatment Imaging Results: Clinical Impression(s) from Imaging Studies Abdomen/Pelvis CT 06/28/18 08:32 IMPRESSION: Findings suggestive of a stenosis at the rectosigmoid junction at the place of the visualized clip with the fluid distention of the ascending colon. Diverticulum of second portion of duodenum. Fatty infiltration of the liver. Electronically Signed: Angel Villareal MD at 11:33 EST Tel [phone], Service support , Operations: colectomy Procedures: Colonoscopy Summary of Care Provided: The patient is a 68 year old M who presented for screening colonoscopy. The patient was found to have a near obstructing mass in the sigmoid colon. He had a CT scan with oral and IV contrast that day and then was admitted and kept on clear liquids over the weekend. On Sunday he was taken for a laparoscopic sigmoid colectomy. He did well after surgery and was discharged home on postoperative day 2. The obstructing colon mass was found to be an adenocarcinoma. - Physical Exam Vital Signs Temp Pulse Resp BP Pulse Ox 97.4 F L 58 L 18 124/88 H 100 07/03/18 13:00 07/03/18 13:00 07/03/18 13:00 07/03/18 13:00 07/03/18 13:00 Oxygen Flow Rate (L/min) 6 Oxygen Delivery Method Room Air Weight: 213 lb 2.992 oz Body Mass Index (BMI) 28.9 Discharge Diet: Soft diet Discharge Activity: Return to Normal Activity, May Shower Call your doctor if your incision/area has: Continuous Slow Oozing, Sudden Increased Bleeding, Increased Pain/ Swelling, Increased Redness, Foul Smelling Discharge, Swelling at the incision site Call your doctor if you observe: Fever of 101 or Higher Home Medications: Medications to take at Discharge Multivitamin with Minerals [Multiple Vitamin] 1 each PO DAILY 06/24/18 [place]-3 Fatty Acids/Fish Oil [Fish Oil 1,000 mg Capsule] 1 each PO DAILY 06/24/18 Rosuvastatin Calcium [Crestor] 10 mg PO QHS 06/24/18 Venlafaxine HCl [Effexor] 75 mg PO DAILY 06/24/18 Docusate Sodium [Colace] 100 mg PO BID 10 Days #20 capsule 07/03/18 Following Prescrptions Were Given to Patient: Docusate Sodium [Colace] 100 mg PO BID 10 Days #20 capsule Primary Care Physician: Alistair Townsend MD [Primary Care Provider] - Please Follow Up With: Guillaume Berg MD When: call to make 1 week follow up appt [phone] Medical Necessity - Tobacco Use Smoking Status: Former smoker Tobacco Use: Non-smoker Meaningful Use Info Meaningful Use Diagnoses (Choose all that apply): None applicable
--- OUTSIDE RECORDS SUMMARY | 2018-09-01 14:06 | XMS RPT_ITS ---
:1950 Author Organization OHIP Support Name Relationship Address Phone VAZQUEZIRINA Unavailable [id number] [place] + [place] [address] [employer] Unavailable [address] + [place] [address] IRINA SHUKLA Unavailable [address] [place] + [place] [address] [employer] Unavailable [address] + [place] [address] IRINA SHUKLA Unavailable [address] + [place] [address] [employer] Unavailable [address] + [place] [address] IRINA SHUKLA Unavailable [address] + [place] [address] [employer] Unavailable [address] + [place] [address] IRINA SHUKLA Unavailable [address] [place] + [place] [address] [employer] Unavailable [address] + [place] [address] IRINA SHUKLA Unavailable [address] + [place] [address] [employer] Unavailable [address] + [place] [address] IRINA SHUKLA Unavailable [address] + [place] [address] [employer] Unavailable [address] + [place] [address] PINKY SHUKLASON Unavailable [address] + [place] [address] [employer] Unavailable [address] + [place] [address] PINKY SHUKLASON Unavailable Unavailable + [place] [address] [employer] Unavailable [address] + [place] [address] PINKY SHUKLASON Unavailable Unavailable + [place] [address] [employer] Unavailable [address] + [place] [address] IRINA SHUKLA Unavailable Unavailable + [place] [address] [employer] Unavailable [address] + [place] [address] Care Team Providers Name Role Phone Guillaume Berg Attending Unavailable Emoryabretta, Guillaume Referring Unavailable Townsend, Alistair Primary Care Unavailable Calabretta, Guillaume Admitting Unavailable Calabretta, Guillaume Attending Unavailable Calabretta, Guillaume Referring Unavailable Townsend, Alistair Primary Care Unavailable Calabretta, Guillaume Consulting Unavailable Calabretta, Guillaume Admitting Unavailable Danis Coulter Attending Unavailable Calabretta, Guillaume Referring Unavailable Townsend, Alistair Primary Care Unavailable Calabretta, Guillaume Consulting Unavailable Calabretta, Guillaume Admitting Unavailable Danis Coulter Attending Unavailable Calabretta, Guillaume Referring Unavailable Townsend, Alistair Primary Care Unavailable Calabretta, Guillaume Consulting Unavailable Calabretta, Guillaume Admitting Unavailable Calabretta, Guillaume Attending Unavailable Calabretta, Guillaume Referring Unavailable Townsend, Alistair Primary Care Unavailable Calabretta, Guillaume Consulting Unavailable Calabretta, Guillaume Admitting Unavailable Calabretta, Guillaume Attending Unavailable Calabretta, Guillaume Referring Unavailable Townsend, Alistair Primary Care Unavailable Calabretta, Guillaume Consulting Unavailable Calabretta, Guillaume Admitting Unavailable Calabretta, Guillaume Attending Unavailable Calabretta, Guillaume Referring Unavailable Townsend, Alistair Primary Care Unavailable Calabretta, Guillaume Consulting Unavailable Jarrod Adam Attending Unavailable Townsend, Alistair Primary Care Unavailable Townsend, Alistair Attending Unavailable Townsend, Alistair Referring Unavailable Townsend, Alistair Primary Care Unavailable Townsend, Alistair Attending Unavailable Townsend, Alistair Referring Unavailable Townsend, Alistair Primary Care Unavailable Nurse, Ronnie Attending Unavailable Townsend, Alistair Referring Unavailable PROBLEMS PROBLEMS DATE TYPE CONDITION / CODE ATTENDING STATUS SOURCE 11/29/2017 Unknown M54.5 - Low back Townsned, Alistair Active [place] [facility] M54.5(ICD-10) Hospital Repository PROCEDURES PROCEDURES No Procedure Records FoundRESULTS RESULTS 12 LEAD ELECTROCARDIOGRAM Observed: 07/03/2018 Status: F Source: [place] 1:56 PM [facility] REPOSITORY [facility] Cardiovascular Services [address] [place] [address] 12 Lead EKG 07/01/18 0910 MR#: [id number] Acct: [id number] Name: LO SHUKLA Rep #: [id number] : 1950 68 From: Alistair Darnell MD Attending Dr: Guillaume Berg MD Status: ADM IN Ordering Dr: Emil Davidson MD Date: 07/01/18 Location: [facility] Sex: M C Admitted: 06/28/18 Test Reason : PRE OP Blood Pressure : / mmHG Vent. Rate : 061 BPM Atrial Rate : 061 BPM P-R Int : 194 ms QRS Dur : 088 ms QT Int : 404 ms P-R-T Axes : 068 009 035 degrees QTc Int : 406 ms Sinus rhythm with Premature atrial complexes Otherwise normal ECG Confirmed by MANN WEBB, ALISTAIR ([id number]), publishing editor EDVIN CHRIS ([id number]) on 07/03/2018 1:55:48 PM Referred By: Guillaume Berg Confirmed By:ALISTAIR DARNELL MD 07/03/18 1355 Date Alistair Dranell MD CC: Guillaume Berg MD; Emil Davidson MD; Alistair Townsend MD Signed DISCHARGE INSTRUCTION Observed: 07/03/2018 Status: F Source: [place] 12:18 PM [facility] REPOSITORY [facility] Medical Records Department [address] [place] [address] Instructions for Home/Discharge Instructions 07/03/18 1216 MR#: [id number] Acct: [id number] Name: LO SHUKLA Rep #: [id number] : 1950 68 From: Guillaume Berg MD PCP: Alistair Townsend MD Status: ADM IN Discharge Diet: Soft diet Discharge Activity: Return to Normal Activity, May Shower Lifting Restrictions: 20 LBS FOR 4 weeks Call your doctor if your incision/area has: Continuous Slow Oozing, Sudden Increased Bleeding, Increased Pain/ Swelling, Increased Redness, Foul Smelling Discharge, Swelling at the incision site Call your doctor if you observe: Fever of 101 or Higher Allergies/Adverse Reactions: Allergies Penicillins [PCN] Allergy (Verified 06/24/18 09:17) Hives Medications to take at Discharge Multivitamin with Minerals [Multiple Vitamin] 1 each PO DAILY 06/24/18 [place]-3 Fatty Acids/Fish Oil [Fish Oil 1,000 mg Capsule] 1 each PO DAILY 06/24/18 Rosuvastatin Calcium [Crestor] 10 mg PO QHS 06/24/18 Venlafaxine HCl [Effexor] 75 mg PO DAILY 06/24/18 Docusate Sodium [Colace] 100 mg PO BID 10 Days #20 capsule 07/03/18 The following prescriptions were given: Docusate Sodium [Colace] 100 mg PO BID 10 Days #20 capsule Primary Care Physician: Alistair Townsend MD [Primary Care Provider] - Test Results: Test results from this visit will be discussed in further detail at your follow-up appointment, if applicable. Please Follow Up With: Guillaume Berg MD When: call to make 1 week follow up appt [phone] 07/03/18 1218 <Electronically signed by Guillaume Berg MD> Date Guillaume Berg MD CC: Alistair Townsend MD Signed BASIC METABOLIC Collected: 07/03/2018 Status: F Source: [place] PROFILE ([facility]) 5:44 AM [facility] REPOSITORY TYPE CODE TESTS RESULT OUT OF RANGE REFERENCE UNITS LAB L501.0100 74-106 mg/dL Normal GLU 92 Result Comment: Please note revised GLUCOSE reference range effective 2017. LAB L501.1000 7-18 mg/dL Normal BUN 8 LAB L501.1100 0.70-1.30 mg/dL Normal CREAT,SERUM 0.87 Result Comment: The validity of the calculated GFR AND GFRAA in patients over 70 years has not been determined. Clinical correlation is essential. LAB L501.1110 >60 mL/min Normal EST GFR 93 Result Comment: Non- GFR Calc LAB L501.1115 >60 mL/min Normal EST GFR - AA 113 Result Comment: GFR Calc LAB L501.1255 ml/min Normal Estimated CRCL 91.67 LAB L501.1300 10-20 RATIO Low BUN/CRE 9.2 LAB L501.2200 8.5-10 mg/dL Low .1 CA 8.2 LAB L501.5300 136-14 mmol/L Normal 5 NA 144 LAB L501.5600 3.5-5. mmol/L Normal 1 K 3.9 LAB L501.5900 98-107 mmol/L High CL 110 LAB L501.6100 21.0-3 mmol/L Normal 2.0 CO2 27.0 LAB L501.6200 5-15 Normal GAP 7 Performed By: #### L500.2500 #### [facility] [address] [place], [address] CBC W/DIFF, AUTOMATED Collected: 07/03/2018 Status: F Source: [place] 5:44 AM [facility] REPOSITORY TYPE CODE TESTS RESULT OUT OF RANGE REFERENCE UNITS LAB L100.1000 4.4-11.0 K/mm3 Normal WBC 7.7 LAB L100.1200 4.6-6.2 M/mm3 Low RBC 4.07 LAB L100.1300 13.0-16.5 g/dl Low HGB 12.3 LAB L100.1400 40-54 % Low HCT 38.5 LAB L100.1500 80-94 fL High MCV 94.6 LAB L100.1600 27.0-32.0 pg Normal MCH 30.2 LAB L100.1700 32-36 g/gl Low MCHC 31.9 LAB L100.1810 11.6-14.6 % Normal RDW CV 13.1 LAB L100.1820 35.1-43.9 fl High RDW SD 44.0 LAB L100.1900 150-450 K/mm3 Low PLT 139 LAB L100.2000 6.2-12.0 fl Normal MPV 11.1 LAB L100.2100 47-70 % Normal NEUT% 68.1 LAB L100.2200 19-41 % Normal LY% 21.2 LAB L100.2300 0-10 % Normal MONO% 7.8 LAB L100.2400 0-5 % Normal EO% 2.5 LAB L100.2500 0-1 % Normal BASO% 0.3 LAB L100.2550 0.0-0.9 % Normal IM GRAN % 0.100 Result Comment: IG% - Immature Granulocytes (promyelocytes, myelocytes and metamyelocytes) > 1% indicates that a LEFT SHIFT is Present. LAB L100.2620 2.0-7.7 X10 3/uL Normal Absolute Neut 5.2 LAB L100.2720 0.83-4.51 X10 3/ul Normal Absolute Lymph 1.63 Performed By: #### L100.0100 #### [facility] [address] [facility]. [place], [place], [address] CBC W/DIFF, AUTOMATED Collected: 07/02/2018 Status: F Source: [place] 5:22 AM [facility] REPOSITORY TYPE CODE TESTS RESULT OUT OF RANGE REFERENCE UNITS LAB L100.1000 4.4-11.0 K/mm3 High WBC 11.3 LAB L100.1200 4.6-6.2 M/mm3 Low RBC 4.45 LAB L100.1300 13.0-16.5 g/dl Normal HGB 13.5 LAB L100.1400 40-54 % Normal HCT 42.0 LAB L100.1500 80-94 fL High MCV 94.4 LAB L100.1600 27.0-32.0 pg Normal MCH 30.3 LAB L100.1700 32-36 g/gl Normal MCHC 32.1 LAB L100.1810 11.6-14.6 % Normal RDW CV 13.2 LAB L100.1820 35.1-43.9 fl High RDW SD 44.0 LAB L100.1900 150-450 K/mm3 Normal PLT 168 LAB L100.2000 6.2-12.0 fl Normal MPV 10.9 LAB L100.2100 47-70 % High NEUT% 83.1 LAB L100.2200 19-41 % Low LY% 8.9 LAB L100.2300 0-10 % Normal MONO% 7.8 LAB L100.2400 0-5 % Normal EO% 0.0 LAB L100.2500 0-1 % Normal BASO% 0.0 LAB L100.2550 0.0-0.9 % Normal IM GRAN % 0.200 Result Comment: IG% - Immature Granulocytes (promyelocytes, myelocytes and metamyelocytes) > 1% indicates that a LEFT SHIFT is Present. LAB L100.2620 2.0-7.7 X10 3/uL High Absolute Neut 9.4 LAB L100.2720 0.83-4.51 X10 3/ul Normal Absolute Lymph 1.00 Performed By: #### L100.0100 #### [facility] [address] [place], [address] BASIC METABOLIC Collected: 07/02/2018 Status: F Source: [place] PROFILE ([facility]) 5:22 AM [facility] REPOSITORY TYPE CODE TESTS RESULT OUT OF RANGE REFERENCE UNITS LAB L501.0100 74-106 mg/dL High GLU 118 Result Comment: Fasting Glucose result from 100 to 125 mg/dL suggests IMPAIRED HOMEOSTASIS per A.D.A. criteria. Please note revised GLUCOSE reference range effective 2017. LAB L501.1000 7-18 mg/dL Normal BUN 8 LAB L501.1100 0.70-1.30 mg/dL Normal CREAT,SERUM 0.95 Result Comment: The validity of the calculated GFR AND GFRAA in patients over 70 years has not been determined. Clinical correlation is essential. LAB L501.1110 >60 mL/min Normal EST GFR 84 Result Comment: Non- GFR Calc LAB L501.1115 >60 mL/min Normal EST GFR - AA 102 Result Comment: GFR Calc LAB L501.1255 ml/min Normal Estimated CRCL 83.95 LAB L501.1300 10-20 RATIO Low BUN/CRE 8.4 LAB L501.2200 8.5-10 mg/dL Low .1 CA 8.4 LAB L501.5300 136-14 mmol/L Normal 5 NA 142 LAB L501.5600 3.5-5. mmol/L Normal 1 K 4.2 LAB L501.5900 98-107 mmol/L High CL 109 LAB L501.6100 21.0-3 mmol/L Normal 2.0 CO2 25.0 LAB L501.6200 5-15 Normal GAP 8 Performed By: #### L500.2500 #### [facility] [address] [facility] [place], [address] OPERATIVE REPORT Observed: 07/01/2018 Status: F Source: [place] 3:55 PM [facility] REPOSITORY [facility] Medical Records Department [address] [facility] [place] [address] Operative Report 07/01/18 1544 MR#: [id number] Acct: [id number] Name: LO SHUKLA Rep #: [id number] : 1950 68 From: Guillaume Berg MD PCP: Alistair Townsend MD Status: ADM IN Location: [facility] [id number] Problem List (1) Obstruction of colon Status: Acute (2) Colonic mass Status: Acute Report of Operation Date of Procedure: 07/01/18 Pre-Operative Diagnosis: Partial obstructing colon mass in the sigmoid colon Post-Operative Diagnosis: Same Surgery/Procedure Performed:: Laparoscopic sigmoid colectomy with anastomosis. Splenic flexure release Specimen's removed: Sigmoid colon Description of Procedure: The patient was brought back to the operating room and general anesthesia was induced. Delvalle catheter was placed. The patient was placed into stirps. Next the abdomen was prepped and draped in usual sterile fashion. An incision was made superior to the umbilicus and deepened to the level of the fascia. The fascia was elevated and incised. A finger sweep was performed and a 12 mm port was placed into the abdomen and the abdomen was insufflated to 15 mmHg. Next a tap block was performed. This was done with a 25-gauge spinal needle under direct visualization laparoscopically. This was done bilaterally from the ASIS to the inferior portion of the ribs and then across the inferior costal margin. This was done at 1 cm intervals bilaterally. Next port sites were localized in the right lower quadrant and the right middle abdomen. These sites were anesthetized with the tap block mixture and then a 12 mm port was placed into the right lower quadrant under direct visualization and a 5 mm port was placed in the right mid abdomen. Next a another 5 mm port was placed in the left lower quadrant. The abdomen was inspected and there is no signs of metastasis and the liver appeared normal. Next the sigmoid colon was identified and grasped. It was retracted medially and the mass was identified easily. The lateral attachments were taken down with the Enseal device on the white line of Toldt. This was taken inferiorly and superiorly. Next the majority of the splenic flexure was released using the Enseal device. The left colic pedicle was then put onto tension and held anteriorly and scissors were used to make a small bel in the peritoneum. This was extended to reveal the inferior mesenteric artery and left colic branch. The left colic branch was clipped twice below and once distally and taken with an energy device. Next superior to this the inferior mesenteric vein was identified and just above a branch coming from the splenic flexure the vein was taken. This was done with 2 clips and an energy device. This left the mesentery of the sigmoid colon fairly well open after the lateral dissection. The mass was held up and proximal and distal margins were measured and ensure that they would reach the midline and reach each other with no tension. Next the umbilical port was extended superiorly. This was done with electrocautery. A large wound retractor was placed into the wound. The colon was then delivered into the wound. About 10-12 cm proximal to the mass the colon was divided. This was done with a RADHA stapler. Distally a laurie clamp was placed on the proximal line and a bowel clamp was placed distally and the mid sigmoid was divided. The mass was sent for pathology with a suture marking the proximal margin. Next the distal opening was measured and a 31 sizer easily fit into the lumen. The 33 EEA stapler was selected. The anvil was placed into the distal colon and a 2-0 Prolene suture was used to create a pursestring. In the proximal colon a small colotomy was made proximal to the staple line in the tenia. The stapler was placed through this and to the staple line. The point was extended through the staple line. This was attached to the anvil and they were closed. It was ensure that nothing was caught below the staple line and that these were lined up in good anatomical position. The stapler was then fired and removed. There were good donuts. Next the anastomosis was inspected. There was a small area of bleeding on the mesenteric side. 3 interrupted 3-0 silk sutures were placed internally to create hemostasis. Next the colotomy was closed with a running 3-0 PDS suture followed by a second layer of interrupted 3-0 silk imbricating sutures. There was no stenosis and the anastomosis appeared widely patent. This was placed back in the abdomen and the abdomen was irrigated with saline and suction. Next the wound protector was twisted and the abdomen was reinsufflated. The colon was reinspected and the anastomosis appeared to have no tension on it and was easily mobile. There appeared to be no twisting of the bowel. There was good hemostasis in the abdomen. The wound retractor was removed and all staff changed into fresh gown and gloves. The patient was redraped with fresh towels and the fascia was closed with running #1 PDS suture starting at each end and meeting in the middle. Next the incision was irrigated and suctioned. The skin was anesthetized with the rest of the Exparel mixture as well as the port sites. In the right lower quadrant the 12 mm port fascia was closed with an interrupted 0 Vicryl suture. Next all incisions were closed with interrupted 4-0 Monocryl sutures and Steri-Strips. Bandages were then applied. The patient's Delvalle remained at the end of the case. Patient was taken to PACU in stable condition. - Admit VTE Documentation VTE Mechan Device Prophylaxis: SCD's 07/01/18 1555 <Electronically signed by Guillaume Berg MD> Date Guillaume Berg MD CC: Guillaume Berg MD; Alistair Townsend MD Signed BASIC METABOLIC Collected: 07/01/2018 Status: F Source: [place] PROFILE ([facility]) 5:24 AM [facility] REPOSITORY TYPE CODE TESTS RESULT OUT OF RANGE REFERENCE UNITS LAB L501.0100 74-106 mg/dL Normal GLU 94 Result Comment: Please note revised GLUCOSE reference range effective 2017. LAB L501.1000 7-18 mg/dL Low BUN 4 LAB L501.1100 0.70-1.30 mg/dL Normal CREAT,SERUM 0.74 Result Comment: The validity of the calculated GFR AND GFRAA in patients over 70 years has not been determined. Clinical correlation is essential. LAB L501.1110 >60 mL/min Normal EST GFR 113 Result Comment: Non- GFR Calc LAB L501.1115 >60 mL/min Normal EST GFR - AA 137 Result Comment: GFR Calc LAB L501.1255 ml/min Normal Estimated CRCL 79.76 LAB L501.1300 10-20 RATIO Low BUN/CRE 5.4 LAB L501.2200 8.5-10 mg/dL Normal .1 CA 8.6 LAB L501.5300 136-14 mmol/L High 5 NA 147 LAB L501.5600 3.5-5. mmol/L Low 1 K 3.4 LAB L501.5900 98-107 mmol/L High CL 113 LAB L501.6100 21.0-3 mmol/L Normal 2.0 CO2 27.0 LAB L501.6200 5-15 Normal GAP 7 Performed By: #### L500.2500 #### [facility] [address] [facility] [place], [place], [address] TYPE AND SCREEN Collected: 07/01/2018 Status: F Source: [place] 5:24 AM [facility] REPOSITORY Order Comment: Reason for Type AND Screen/Red Cells: SURGERY TYPE CODE TESTS RESULT OUT OF RANGE REFERENCE UNITS LAB B10.0800 O Normal BLOOD TYPE GEL POSITIVE LAB B100.4000 Normal Antibody NEGATIVE Screen Performed By: #### B101.7450 #### [facility] [address] [place], [address] CBC W/DIFF, AUTOMATED Collected: 07/01/2018 Status: F Source: [place] 5:24 AM [facility] REPOSITORY TYPE CODE TESTS RESULT OUT OF RANGE REFERENCE UNITS LAB L100.1000 4.4-11.0 K/mm3 Normal WBC 6.3 LAB L100.1200 4.6-6.2 M/mm3 Low RBC 4.40 LAB L100.1300 13.0-16.5 g/dl Normal HGB 13.4 LAB L100.1400 40-54 % Normal HCT 41.3 LAB L100.1500 80-94 fL Normal MCV 93.9 LAB L100.1600 27.0-32.0 pg Normal MCH 30.5 LAB L100.1700 32-36 g/gl Normal MCHC 32.4 LAB L100.1810 11.6-14.6 % Normal RDW CV 13.0 LAB L100.1820 35.1-43.9 fl Normal RDW SD 43.5 LAB L100.1900 150-450 K/mm3 Normal PLT 162 LAB L100.2000 6.2-12.0 fl Normal MPV 10.7 LAB L100.2100 47-70 % Normal NEUT% 57.4 LAB L100.2200 19-41 % Normal LY% 30.9 LAB L100.2300 0-10 % Normal MONO% 7.2 LAB L100.2400 0-5 % Normal EO% 3.7 LAB L100.2500 0-1 % Normal BASO% 0.6 LAB L100.2550 0.0-0.9 % Normal IM GRAN % 0.200 Result Comment: IG% - Immature Granulocytes (promyelocytes, myelocytes and metamyelocytes) > 1% indicates that a LEFT SHIFT is Present. LAB L100.2620 2.0-7.7 X10 3/uL Normal Absolute Neut 3.6 LAB L100.2720 0.83-4.51 X10 3/ul Normal Absolute Lymph 1.93 Performed By: #### L100.0100 #### [facility] [address] [facility] [place], [place], [address] COLON (NEOPLASM) Observed: 07/01/2018 Status: F Source: [place] 12:00 AM [facility] REPOSITORY Patient: LO SHUKLA : 1950 (68/M) Acct Num: [id number] Phys: Guillaume Berg MD Unit Num: [id number] Loc: MS3 [id number] Specimen: [id number] Received: 07/01/18 - 1443 Spec Type: COLON TISSUES 1 TISSUES: Colon, NOS COMMENT COLON CANCER SUMMARY: Specimen - sigmoid colon Procedure - sigmoidectomy Tumor site - sigmoid colon Tumor size - 7.5 x 4 x 1.6 cm Macroscopic tumor perforation - not identified Histologic type - adenocarcinoma Histologic grade - low grade (moderately differentiated) Microscopic tumor extension - tumor invades through muscularis propria into subserosal tissue. Margins: Proximal margin - uninvolved by carcinoma. Distal margin - closest mucosal margin uninvolved by carcinoma and 3.5cms from tumor. Circumferential margin - uninvolved by carcinoma. Treatment effect - unknown Lymph-Vascular invasion - not identified Perineural invasion - not identified Tumor deposits - not present Number of lymph nodes examined - 25 Number of lymph nodes involved by carcinoma - 0 (none) Microsatellite instability - No microsatellite instability detected. Negative (no loss of mismatch protein); (See microsatellite instability study by IHC ,[id number] for complete details). Immunohistochemistry Studies for Mismatch Repair Proteins: MLH1 - Intact nuclear positivity, tumor cells MSH2 - Intact nuclear positivity, tumor cells MSH6 - Intact nuclear positivity, tumor cells PMS2 - Intact nuclear positivity, tumor cells PATHOLOGIC STAGE: pT3 N0 Mx The above summary is in compliance with [employer] (CAP) Cancer Protocols Checklist and [place] Joint Committee on Cancer (AJCC), Staging Manual, 8th Ed. Case has been reviewed in consultation with Dr. Loya who concurs with the above diagnosis. 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 The specimen consists of a segment of bowel measuring 15 cm in length. Located 5 cm from the proximal mucosal margin of excision and 3.5 cm from the distal mucosal margin of excision is a firm, pink- white fungating mass that occupies 100% of the circumference of the bowel and measures 7.5 x 4 x 1.6 cm. The uninvolved mucosa is hollis-pink and thrown into normal folds. No other masses are identified. The serosa in the area of the mass is inked in black ink. A small amount of yellow fibro- fatty tissue is adherent to the serosal surface. Serial sections of the mass do not reveal extension of neoplasm into the surrounding adipose tissue. Also present in the specimen container are two mucosal donuts each with an average diameter of 3 cm and maximal thickness of 1 cm. Also present free in the container is an irregular fragment of light hollis mucosal tissue with attached fatty tissue measuring 3.5 x 2 x 1 cm. No mass lesions are identified in any of these separate fragments of tissue. The mucosal tissue not identified as donut contains a metallic suture. The attached fibrofatty tissue contains a number of nodules resembling lymph nodes. Delivery Person sections are submitted in eight cassettes as follows: 1 mucosal donuts, 2 - segment of bowel with staple, 3 - proximal and distal mucosal margins (distal margin inked black), 4-8 - tumor. / AM:arun 07/02/18 TC:0 CPT: 82774 HEADER OPERATION: Colonoscopy (MAC) PRE-OP DIAGNOSIS: Screening TISSUE SUBMITTED: Sigmoid colon - suture vuong proximal margin MICROSCOPIC DESCRIPTION Slides are reviewed. MICROSCOPIC DIAGNOSIS Sigmoid colon, segmental colectomy: Invasive moderately differentiated adenocarcinoma. See cancer checklist below. AM:arun 07/03/18 Signed Titi Kennedy DO 07/04/18 <signature on file> Performed By: #### PCOL. #### [facility] [address] [place], [place] [address]pa[place], [address] IMMUNOHISTOCHEMISTRY Observed: 07/01/2018 Status: F Source: [place] 12:00 AM [facility] REPOSITORY Patient: LO SHUKLA : 1950 (68/M) Acct Num: [id number] Phys: Guillaume Berg MD Unit Num: [id number] Loc: MS3 [id number] Specimen: [id number] Received: 07/03/18 - 1253 Spec Type: IMMUNO TISSUES 1 TISSUES: Sigmoid colon biopsy SPECIMEN INFORMATION: Tissue Source: Sigmoid colon Clinical Info: Screening Specimen Number: [id number] #8 CPT code: 47968, 58030 x7 METHODOLOGY: Deparaffinized sections of prefer/formalin-fixed tissue or PAP/DQ stained slides are incubated with monoclonal/polyclonal antibodies/oligonucleotide probes. Localization is made via biotin free immunoperoxidase method. Appropriate controls are performed and reacted as expected. Results on target cell population are indicated in the following table: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 [facility] [id number] [place] Number: Repository [id number]: 330 [id number] [phone] () Date:2018-05-10 06/28/2018 Secondary LO C [place] Insurance:AARPPolicy HICKSDOB: Community Number: [id number] Hospital [id number] Repository Date:7024-61-76[address]YPVI, [place] [address]HI: 06/28/2018 Tertiary NOT GIVENUNK [place] Insurance:SELF PAY [facility] Number: Effective Repository Date:2018-06-28 06/28/2018 LO C Primary LO C [place] [id number] Insurance:MEDICARE HICKSDOB: Community [place] PART A [facility] [id number] [place] Number: Repository [phone]: [phone] [id number] [phone] () Date:2018-05-10 06/28/2018 Secondary LO C [place] Insurance:AARPPolicy HICKSDOB: Community Number: [id number] Hospital [id number] Repository Date:5178-75-32[address]NVBVTT, [place] [address]NN: 06/28/2018 Tertiary NOT GIVENUNK [place] Insurance:SELF PAY [facility] Number: Effective Repository Date:2018-06-28 06/28/2018 LO C Primary LO C [place] [id number] Insurance:MEDICARE HICKSDOB: [facility] [place] PART A [facility] [id number] [place] Number: Repository [address]Clz: 330 [id number] () Date:2018-05-10 06/28/2018 Secondary LO C [place] Insurance:AARPPolicy HICKSDOB: Community Number: [id number] Hospital [id number] Repository Date:6623-82-94CF [address]FTSCG, [place] [address]TY: 06/28/2018 Tertiary NOT GIVENUNK [place] Insurance:SELF PAY [facility] Number: Effective Repository Date:2018-06-28 06/28/2018 LO C Primary LO C [place] [id number] Insurance:MEDICARE HICKSDOB: Community [place] PART A [facility] [id number] [place] [place] Number[place] Repository [address]Dkc: 330 [id number] [phone] () Date:2018-05-10 06/28/2018 Secondary LO C [place] Insurance:AARPPolicy HICKSDOB: Community Number: [id number] Hospital [id number] Repository Date:8652-77-98EM [address]CMTIUXW, [place] [address]MO: 06/28/2018 Tertiary NOT GIVENUNK [place] Insurance:SELF PAY [facility] Number: Effective Repository Date:2018-06-28 05/10/2018 LO C Primary LO C [place] [id number] Insurance:MEDICARE HICKSDOB: Community [place] PART A [facility] [id number] [place] [place] Number[place] Repository [address]Lup: 330 [id number] [phone] () Date:2018-05-10 05/10/2018 Secondary LO C [place] Insurance:AARPPolicy HICKSDOB: Community Number: [id number] Hospital [id number] Repository Date:1413-13-48[address]YYOQNTB, [place] [address]IK: 05/10/2018 Tertiary NOT GIVENUNK [place] Insurance:SELF PAY [facility] Number: Effective Repository Date:2018-05-10 11/01/2017 LO C Primary LO C [place] [id number] Insurance:MEDICARE HICKSDOB: [place] PART A [facility] [id number] Number: Repository [address]Kqs: 330 [id number] () Date:2017-05-11 11/01/2017 Secondary LO C [place] Insurance:AARPPolicy HICKSDOB: Community Number: [id number] Hospital [id number] Repository Date:7286-49-27VN [address]SDBTYID, [place] [address]QF: 11/01/2017 Tertiary NOT GIVENUNK [place] Insurance:SELF PAY [facility] Number: Effective Repository Date:2017-08-03 07/23/2017 LO Primary LO [place] [id number] Insurance:MEDICARE HICKSDOB: Community [place] PART A [facility] [id number] Number: Repository [address]Dza: 330 [id number] () Date:2017-07-23 07/23/2017 Secondary LO [place] Insurance:AARPPolicy HICKSDOB: Community Number: [id number] Hospital [id number] Repository Date:4703-04-36[address], [place] [address]WH: 07/23/2017 Tertiary NOT GIVENUNK [place] Insurance:SELF PAY [facility] Number: Effective Repository Date:2017-07-23 07/11/2017 LO Primary LO [place] [id number] Insurance:[employer] HICKSDOB: Community [place] [employer] INSURANCE [id number] COPolicy Number: Repository [id number]: 330 [id number] () Date: [place] [address]QA: 07/11/2017 Secondary LO [place] Insurance:MEDICARE [facility] Community [facility] [id number] Hospital Number: Repository [id number] Date:2017-07-11 07/11/2017 Tertiary LO [place] Insurance:AARPPolicy [facility]: Community Number: [id number] Hospital [id number] Repository Date:2559-92-79GG [facility] 236589MDOXRVC, [place] [address]TY: 07/11/2017 Tertiary NOT GIVENUNK [place] Insurance:SELF PAY [facility] Number: Effective Repository Date:2017-07-11
--- OUTSIDE RECORDS SUMMARY | 2018-09-01 14:06 | XMS RPT_ITS ---
:1950 Author Organization [employer] Address [facility] [place] [address] Phone Care Team Providers Name Role Phone Michael Bahena DO Unavailable Reason for Visit Reason For Visit Description Start Date Follow-up by complaint Preliminary reason for visit data, not yet signed by the author as of lower back pain Preliminary reason for visit data, not yet signed by the author as of Chief Complaint Chief Complaint Description Start Date lower back pain Preliminary chief complaint data, not yet signed by the author as of Instructions Instruction Description Start Date Patient advised to follow-up with Primary Care Physician for BMI management. 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 Vital Signs Date Name Value Unit Description BMI (Body Mass 31.99 kg/m2 Body Mass Index Index) [Ratio] Preliminary vital sign data, not yet signed by the author as of BP Diastolic 83 mm[Hg] blood pressure, diastolic Preliminary vital sign data, not yet signed by the author as of BP Systolic 128 mm[Hg] blood pressure, systolic Preliminary vital sign data, not yet signed by the author as of Heart Rate 50 /min pulse rate E&M Preliminary vital sign data, not yet signed by the author as of Height 72 [in_us] height E&M Preliminary vital sign data, not yet signed by the author as of Height 183 cm height in centimeters E&M Preliminary vital sign data, not yet signed by the author as of Weight Measured 235 [lb_av] weight E&M Preliminary vital sign data, not yet signed by the author as of Weight Measured 107 kg weight in kilograms E&M Preliminary vital sign data, not yet signed by the author as of Results Date Name Value Unit Range Flag Description Office Visit: Follow-up by Luke phillips: 3 MEDS REVIEW Done Documentation of current medications (procedure) Preliminary observation data, not yet signed by the author as of MRI HX of the lumbar on MRI (magnetic 08/17/2017 at [facility] resonance imaging) history Preliminary observation data, not yet signed by the author as of Preliminary observation data, not yet signed by the author as of Clinical Summary: HMSPatientID OOP account number Procedures Code Procedure Name Date Entry Date G8730 Pain assessment documented as positive - follow-up documented G8427 Current medications documented 1036F Tobacco screening was negative - non user G8417 BMI documented as above normal parameters - follow-up documented G8783 Blood pressure within normal parameters - no follow-up required [facility]-[id number] Patient Encounter Medications Administered No information available. Immunizations No information available. Advance Directives There may be information available, but it has not been provided by the sender. Assessments There may be information available, but it has not been provided by the sender. Review of Systems There may be information available, but it has not been provided by the sender. Family History There may be information available, but it has not been provided by the sender. History of Past Illness There may be information available, but it has not been provided by the sender. History of Present Illness There may be information available, but it has not been provided by the sender.
== END 2018-07-03 14:08 | disposition home or self-care (01) | DRG 331 ==
LOC: MS3 13:23 → EN 13:23
PROVIDERS: Admitting Provider Surgery; Family Provider Family Medicine; PCP Family Medicine; Referring Provider Surgery; Visit Provider Surgery
PROC: 0DJD8ZZ Inspection of Lower Intestinal Tract, Via Natural or Artificial Opening Endoscopic (ICD-10-PCS; CPT 45378; principal; 2018-06-28 07:55)
PROC: 0DTN0ZZ Resection of Sigmoid Colon, Open Approach (ICD-10-PCS; CPT 44204; principal; 2018-07-01 10:35)
DX: C18.7 Malignant neoplasm of sigmoid colon (principal); Z12.11 Encounter for screening for malignant neoplasm of colon; Z87.891 Personal history of nicotine dependence; Z53.31 Laparoscopic surgical procedure converted to open procedure
CPT/HCPCS: 36415; 74177; 80048; 80053; 82378; 85025; 86850; 86900; 88305; 88309; 88341; 88342; 93005; 94762; J7030; J7050; J7120; Q9967; A4216; C1760; J0744; J2405

== ENCOUNTER 2018-08-23 08:37 | Day surgery (SDC) | payer MEDICARE, OTHER, SELFPAY ==
[2018-07-01 08:35] VITALS: BMI 28.9
[2018-07-15 15:37] VITALS: BMI 28.5
[2018-08-23 08:49] VITALS: BP 139/98; PULSE 64; RESP 17; TEMP 36.7; O2SAT 100; BMI 29.3
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
[2018-08-23 09:50] VITALS: BP 107/82; BP 139/98; PULSE 70; RESP 16; TEMP 36.1; O2SAT 97
--- NOTE | 2018-08-23 09:52 | OP.ENDO_ITS ---
Patient Name: Carlos Biggs Procedure Date: 08/23/2018 9:22 AM Date of : 1950 Age: 68 Procedure: Colonoscopy Indications: High risk colon cancer surveillance: Personal history of colon cancer Providers: Guillaume Berg MD Medicines: Monitored Anesthesia Care Patient Profile: This is a 68 year old male. Refer to note in patient chart for documentation of history and physical. Last Colonoscopy: 6 months ago. Complications: No immediate complications. Procedure: Pre-Anesthesia Assessment: - Prior to the procedure, a History and Physical was performed, and patient medications and allergies were reviewed. The patient's tolerance of previous anesthesia was also reviewed. The risks and benefits of the procedure and the sedation options and risks were discussed with the patient. All questions were answered, and informed consent was obtained. Prior Anticoagulants: The patient has taken no previous anticoagulant or antiplatelet agents. After reviewing the risks and benefits, the patient was deemed in satisfactory condition to undergo the procedure. After I obtained informed consent, the scope was passed under direct vision. Throughout the procedure, the patient's blood pressure, pulse, and oxygen saturations were monitored continuously. The Colonoscope was introduced through the anus and advanced to the cecum, identified by appendiceal orifice and ileocecal valve. The colonoscopy was performed without difficulty. The patient tolerated the procedure well. The quality of the bowel preparation was good. Scope In: 9:32:53 AM Scope Withdrawal Time 0 hours 7 minutes 17 seconds Scope Out: 9:47:38 AM Total Procedure Duration Time 0 hours 14 minutes 45 seconds Findings: The entire examined colon appeared normal on direct and retroflexion views. Impression: - The entire examined colon is normal on direct and retroflexion views. - No specimens collected. Recommendation: - Discharge patient to home. - Resume previous diet. - Continue present medications. - Repeat colonoscopy in 1 year for surveillance. Procedure Code(s): --- Professional --- 94266, Colonoscopy, flexible; diagnostic, including collection of specimen(s) by brushing or washing, when performed (separate procedure) Diagnosis Code(s): --- Professional --- Z85.038, Personal history of other malignant neoplasm of large intestine CPT copyright 2017 [employer]. All rights reserved. The codes documented in this report are preliminary and upon inpatient coder review may be revised to meet current compliance requirements. Guillaume Berg MD 08/23/2018 9:51:48 AM This report has been signed electronically. Number of Addenda: 0 Note Initiated On: 08/23/2018 9:22 AM
[2018-08-23 09:55] VITALS: BP 105/76; BP 139/98; PULSE 68; RESP 16; O2SAT 96
[2018-08-23 10:00] VITALS: BP 101/79; BP 139/98; PULSE 80; RESP 16; O2SAT 78
[2018-08-23 10:05] VITALS: BP 139/98; BP 98/78; PULSE 55; RESP 16; TEMP 36.1; O2SAT 95
[2018-08-23 10:50] VITALS: BP 139/98
== END 2018-08-23 10:51 | disposition home or self-care (01) ==
LOC: EN 08:38 → AC 08:39
PROVIDERS: Family Provider Family Medicine; PCP Family Medicine; Referring Provider Surgery; Visit Provider Surgery
PROC: 0DJD8ZZ Inspection of Lower Intestinal Tract, Via Natural or Artificial Opening Endoscopic (ICD-10-PCS; CPT 45378; principal; 2018-08-23 09:25)
DX: Z12.11 Encounter for screening for malignant neoplasm of colon (principal); Z85.038 Personal history of other malignant neoplasm of large intestine; E78.00 Pure hypercholesterolemia, unspecified; F41.9 Anxiety disorder, unspecified; F32.9 Major depressive disorder, single episode, unspecified; Z87.891 Personal history of nicotine dependence; Z79.899 Other long term (current) drug therapy
CPT/HCPCS: G0121; J7120

== ENCOUNTER → 2018-11-07 | Outpatient (CLI) | payer MEDICARE, OTHER, SELFPAY ==
[2018-10-07 13:12] VITALS: BMI 28.8
[2018-11-07 13:06] LABS: Vitamin D,25 Hydroxy 39.6 ng/mL (29.95-100.01)
[2018-11-07 13:12] LABS: Anion Gap 8 (5-15); BUN 23 mg/dL (7-18); BUN/Creat Ratio 29.2 RATIO (10-20); Chloride 108 mmol/L (98-107); Cholesterol 159 mg/dL (200); Creatinine, Serum 0.79 mg/dL (0.70-1.30); EST Glomerular Filtration Rate 104 mL/min (>60); Est Glom Filt Rate - Afr Amer 126 mL/min (>60); Glucose 99 mg/dL (74-106); High Density Lipoprotein 69 mg/dL; PSA,Total - Annual Screen 1.99 ng/mL (0.00-4.00); Potassium 4.4 mmol/L (3.5-5.1); Sodium Level 142 mmol/L (136-145); Thyroid Stim Hormone (TSH) 1.68 uIU/mL (0.358-3.74); Triglycerides 56 mg/dL; Very Low Density Lipoprotein 11 mg/dL (5-40)
== END | disposition home or self-care (01) ==
LOC: MFPLAB 10:07
PROVIDERS: Family Provider Family Medicine; PCP Family Medicine; Referring Provider Family Medicine; Visit Provider Family Medicine
DX: Z00.00 Encounter for general adult medical examination without abnormal findings (principal)
CPT/HCPCS: 36415; 80048; 80061; 82306; 84153; 84403; 84443; G0103

== ENCOUNTER → 2019-06-12 12:15 | Outpatient (CLI) | payer MEDICARE, OTHER, SELFPAY ==
--- NOTE | 2019-06-12 12:20 | RAD_ITS ---
STUDY: X-RAY - LEFT ANKLE REASON FOR EXAM: Male, 69 years old. left ankle pain recently -- injury and surgery was about 50 years ago TECHNIQUE: 3 view(s) of the ankle. COMPARISON: None. FINDINGS: Lateral cortical plate-screw construct of the distal one third fibula is present without demonstrated complications. No fracture deformity in the distal fibular shaft. There is severe narrowing of the lateral side of the tibiotalar articulation with etub-tj-xzll contact. Small anterior and posterior cortical osteophytes of the distal tibia are present. Cortical irregularity with sclerotic borders seen on the lateral side of the distal tibia suggest previous trauma to this region. Mild to moderate osteophyte formation is seen on the dorsal surface of the midfoot articulations. The soft tissues are mildly swollen. No acute fracture is seen. 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 Additional findings as above Electronically Signed: Isai Jones MD at 19:08 EST , Service support ,
== END ==
PROVIDERS: Family Provider Family Medicine; PCP Family Medicine; Referring Provider Family Medicine; Visit Provider Family Medicine
DX: M25.579 Pain in unspecified ankle and joints of unspecified foot (principal)
CPT/HCPCS: 73610

== ENCOUNTER 2019-07-22 09:16 | Day surgery (SDC) | payer MEDICARE, OTHER, SELFPAY ==
[2019-07-14 08:42] VITALS: BMI 31.1
--- NOTE | 2019-07-14 09:01 | HP_ITS ---
Intake Vital Signs 07/14/19 BMI 31.1 07/14/19 Height 6 ft 1 in 07/14/19 Weight: 234 lb 07/14/19 BMI 30.9 07/14/19 BP 123/84 H 07/14/19 Blood Pressure Location Rt brachial 07/14/19 Position Sitting 07/14/19 Respiration 18 Intake Visit Reasons: ONE YEAR F/U COLONOSCOPY Chief Complaint: Colon cancer follow-up Netezza Developer Required: No Is patient in pain?: No Allergies Penicillins [PCN] Adverse Reaction (Severe, Verified 07/14/19 08:42) Hives Medications Multivitamin with Minerals [Multiple Vitamin] 1 ea PO DAILY 06/24/18 [History Confirmed 07/14/19] [place]-3 Fatty Acids/Fish Oil [Fish Oil 1,000 mg Capsule] 1 ea PO DAILY 06/24/18 [History Confirmed 07/14/19] Rosuvastatin Calcium [Crestor] 10 mg PO QHS 06/24/18 [History Confirmed 07/14/19] Venlafaxine HCl [Effexor] 75 mg PO QHS 06/24/18 [History Confirmed 07/14/19] Naproxen [Naprosyn] 500 mg PO DAILY 07/15/18 [History Confirmed 07/14/19] Acetaminophen [Tylenol Extra Strength] 500 mg PO Q6H PRN PRN 10/07/18 [History Confirmed 07/14/19] Acetaminophen [Tylenol Arthritis] 2 tab PO QHS 07/07/19 [History Confirmed 07/14/19] PFSH Medical History Abnormal colonoscopy (Acute) Anxiety (Acute) Arthritis (Acute) CYST REMOVED FROM TAILBONE (Acute) Depression (Acute) Fracture of left ankle (Acute) High cholesterol (Acute) Surgical History History of removal of neck cyst (Acute) History of tonsillectomy (Acute) Family History Father Alzheimer disease Brother Lung cancer Social History (Updated 07/14/19 @ 09:[address] Guillaume Berg MD) Smoking Status: Former smoker HPI HPI HPI: LO SHUKLA, is a 69 M who presents to the office today for HPI HPI Surgical H&P: Yes HPI: LO SHUKLA, is a 69 M who presents to the office today for surveillance colonoscopy. Patient is 1 year status post sigmoid colectomy for colon cancer. The patient has not had any issues since then. He is not experiencing any blood in his stool or abdominal pain. ROS General General: Yes colon cancer; no weight change or fatigue Cardio Cardiovascular: No murmur, pacemaker, heart disease, atrial fibrillation, high blood pressure, heart attack, heart stent, palpitations, shortness of breat with exertion or chest pain Psych Psychiatric: Yes depression and anxiety Resp Respiratory: No shortness of breath, No sleep apnea, No cough, No COPD, No asthma, No emphysema, No wheezing Gastro Gastrointestinal: No abdominal pain, No nausea or vomiting, No diarrhea, No constipation, No blood in stool, No acid reflux, No hemorrhoids, No ulcers, No gallbladder problem, No black,tarry stools David Hematologic: No blood thinners Exam Const General: cooperative Orientation: alert, oriented x3 Resp Effort & Inspection: normal respiratory effort Auscultation: clear to auscultation bilaterally Cardio Rate: regular rate Rhythm: regular rhythm Heart Sounds: no murmurs GI Inspection: non-distended Palpation: soft, nontender Assessment & Plan Problems 1. 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 He is experiencing no symptoms at this point. I explained endoscopy in detail to the patient. I explained the risks including but not limited to stroke or heart attack with anesthesia, perforation of the GI tract, bleeding, infection. I explained that any of these could necessitate further emergency surgery. The patient understands and all questions were answered sufficiently. The patient wishes to proceed with procedure. Guillaume Berg MD Pager: [facility] [address] [place] [address], [address] [place] [address] Office: Orders Orders: Colonoscopy Today C18.7 Coding Level of Care Code Off vis,est,level 3 Diagnoses Cancer of sigmoid colon C18.7 07/14/19 0901 <Electronically signed by Guillaume jaramillo MD> Date _ Guillaume Berg MD I have re-examined the patient. There are no clinical changes since date of exam.
[2019-07-22 09:41] VITALS: BP 134/96; PULSE 68; RESP 16; TEMP 37.1; O2SAT 97; BMI 31.4
[2019-07-22] MEDS: Lactated Ringers 1,000 ML 100 ML IV (09:48)
[2019-07-22 10:30] VITALS: BP 110/70; BP 134/96; PULSE 87; RESP 16; TEMP 36.2; O2SAT 100
--- NOTE | 2019-07-22 10:34 | OP.COLON_ITS ---
Patient Name: Carlos Biggs Procedure Date: 07/22/2019 10:02 AM Date of : 1950 Age: 69 Procedure: Colonoscopy Indications: High risk colon cancer surveillance: Personal history of colon cancer Providers: Guillaume Berg MD Medicines: Monitored Anesthesia Care Patient Profile: This is a 69 year old male. Refer to note in patient chart for documentation of history and physical. Last Colonoscopy: 1 year ago. Complications: No immediate complications. Procedure: Pre-Anesthesia Assessment: - Prior to the procedure, a History and Physical was performed, and patient medications and allergies were reviewed. The patient's tolerance of previous anesthesia was also reviewed. The risks and benefits of the procedure and the sedation options and risks were discussed with the patient. All questions were answered, and informed consent was obtained. Prior Anticoagulants: The patient has taken no previous anticoagulant or antiplatelet agents. After reviewing the risks and benefits, the patient was deemed in satisfactory condition to undergo the procedure. After I obtained informed consent, the scope was passed under direct vision. Throughout the procedure, the patient's blood pressure, pulse, and oxygen saturations were monitored continuously. The colonoscope was introduced through the anus and advanced to the cecum, identified by appendiceal orifice and ileocecal valve. The colonoscopy was performed without difficulty. The patient tolerated the procedure well. The quality of the bowel preparation was good. Scope In: 10:14:09 AM Scope Withdrawal Time 0 hours 6 minutes 22 seconds Scope Out: 10:26:18 AM Total Procedure Duration Time 0 hours 12 minutes 9 seconds Findings: The entire examined colon appeared normal on direct and retroflexion views. Impression: - The entire examined colon is normal on direct and retroflexion views. - No specimens collected. Recommendation: - Discharge patient to home. - Resume previous diet. - Continue present medications. - Repeat colonoscopy in 3 years for surveillance. Procedure Code(s): --- Professional --- 53940, Colonoscopy, flexible; diagnostic, including collection of specimen(s) by brushing or washing, when performed (separate procedure) Diagnosis Code(s): --- Professional --- Z85.038, Personal history of other malignant neoplasm of large intestine CPT copyright 2017 [employer] [place] [employer]. All rights reserved. The codes documented in this report are preliminary and upon wildlife ecologist review may be revised to meet current compliance requirements. Guillaume Berg MD 07/22/2019 10:34:26 AM This report has been signed electronically. Number of Addenda: 0 Note Initiated On: 07/22/2019 10:02 AM
[2019-07-22 10:35] VITALS: BP 128/98; BP 134/96; PULSE 72; RESP 16; O2SAT 98
--- NOTE | 2019-07-22 10:35 | OP.CCLET_ITS ---
07/22/2019 Alistair Townsend MD [address] [id number] Re : Colonoscopy procedure for Carlos Biggs Dear Dr. Townsend This procedure was performed on Monday, July 22, 2019. My impressions and recommendations are as follows: Impressions : - The entire examined colon is normal on direct and retroflexion views. - No specimens collected. Recommendations : - Discharge patient to home. - Resume previous diet. - Continue present medications. - Repeat colonoscopy in 3 years for surveillance. My findings are described in the full procedure note, which is enclosed. If I can be of further assistance, please feel free to contact me at Doctor phone number(s): , Work: . Sincerely, Guillaume Berg MD 07/22/2019 10:34:26 AM This report has been signed electronically.
[2019-07-22 10:40] VITALS: BP 134/96; BP 135/97; PULSE 64; RESP 16; O2SAT 99
[2019-07-22 10:45] VITALS: BP 125/91; BP 134/96; PULSE 54; RESP 16; TEMP 36.3; O2SAT 97
[2019-07-22 11:05] VITALS: BP 134/96
== END 2019-07-22 11:05 | disposition home or self-care (01) ==
LOC: EN 09:18 → AC 09:19
PROVIDERS: PCP Family Medicine; Referring Provider Family Medicine; Visit Provider Surgery
PROC: 0DJD8ZZ Inspection of Lower Intestinal Tract, Via Natural or Artificial Opening Endoscopic (ICD-10-PCS; CPT 45378; principal; 2019-07-22 10:10)
DX: Z85.038 Personal history of other malignant neoplasm of large intestine (principal); F41.9 Anxiety disorder, unspecified; M19.90 Unspecified osteoarthritis, unspecified site; F32.9 Major depressive disorder, single episode, unspecified; E78.00 Pure hypercholesterolemia, unspecified; Z90.49 Acquired absence of other specified parts of digestive tract; Z79.899 Other long term (current) drug therapy; Z87.891 Personal history of nicotine dependence
CPT/HCPCS: 45378; J7120

== ENCOUNTER 2019-08-01 05:46 | Day surgery (SDC) | payer MEDICARE, OTHER, SELFPAY ==
--- NOTE | 2019-07-14 09:01 | HP_ITS ---
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 Required: No Is patient in pain?: No Allergies Penicillins [PCN] Adverse Reaction (Severe, Verified 07/14/19 08:42) Hives Medications Multivitamin with Minerals [Multiple Vitamin] 1 ea PO DAILY 06/24/18 [History Confirmed 07/14/19] [place]-3 Fatty Acids/Fish Oil [Fish Oil 1,000 mg Capsule] 1 ea PO DAILY 06/24/18 [History Confirmed 07/14/19] Rosuvastatin Calcium [Crestor] 10 mg PO QHS 06/24/18 [History Confirmed 07/14/19] Venlafaxine HCl [Effexor] 75 mg PO QHS 06/24/18 [History Confirmed 07/14/19] Naproxen [Naprosyn] 500 mg PO DAILY 07/15/18 [History Confirmed 07/14/19] Acetaminophen [Tylenol Extra Strength] 500 mg PO Q6H PRN PRN 10/07/18 [History Confirmed 07/14/19] Acetaminophen [Tylenol Arthritis] 2 tab PO QHS 07/07/19 [History Confirmed 07/14/19] PFSH Medical History Abnormal colonoscopy (Acute) Anxiety (Acute) Arthritis (Acute) CYST REMOVED FROM TAILBONE (Acute) Depression (Acute) Fracture of left ankle (Acute) High cholesterol (Acute) Surgical History History of removal of neck cyst (Acute) History of tonsillectomy (Acute) Family History Father Alzheimer disease Brother Lung cancer Social History (Updated 07/14/19 @ 09:[address] Guillaume Berg MD) Smoking Status: Former smoker HPI HPI HPI: LO SHUKLA, is a 69 M who presents to the office today for HPI HPI Surgical H&P: Yes HPI: LO SHUKLA, is a 69 M who presents to the office today for surveillance colonoscopy. Patient is 1 year status post sigmoid colectomy for colon cancer. The patient has not had any issues since then. He is not experiencing any blood in his stool or abdominal pain. ROS General General: Yes colon cancer; no weight change or fatigue Cardio Cardiovascular: No murmur, pacemaker, heart disease, atrial fibrillation, high blood pressure, heart attack, heart stent, palpitations, shortness of breat with exertion or chest pain Psych Psychiatric: Yes depression and anxiety Resp Respiratory: No shortness of breath, No sleep apnea, No cough, No COPD, No asthma, No emphysema, No wheezing Gastro Gastrointestinal: No abdominal pain, No nausea or vomiting, No diarrhea, No constipation, No blood in stool, No acid reflux, No hemorrhoids, No ulcers, No gallbladder problem, No black,tarry stools David Hematologic: No blood thinners Exam Const General: cooperative Orientation: alert, oriented x3 Resp Effort & Inspection: normal respiratory effort Auscultation: clear to auscultation bilaterally Cardio Rate: regular rate Rhythm: regular rhythm Heart Sounds: no murmurs GI Inspection: non-distended Palpation: soft, nontender Assessment & Plan Problems 1. 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 He is experiencing no symptoms at this point. I explained endoscopy in detail to the patient. I explained the risks including but not limited to stroke or heart attack with anesthesia, perforation of the GI tract, bleeding, infection. I explained that any of these could necessitate further emergency surgery. The patient understands and all questions were answered sufficiently. The patient wishes to proceed with procedure. Guillaume Berg MD Pager: [facility] [address] [place] [address], [address] [place] [address] Office: Orders Orders: Colonoscopy Today C18.7 Coding Level of Care Code Off vis,est,level 3 Diagnoses Cancer of sigmoid colon C18.7 07/14/19 0901 <Electronically signed by Guillaume jaramillo MD> Date _ Guillaume Berg MD
--- NOTE | 2019-08-01 | CYST_PTH ---
PATIENT: LO SHUKLA LOC: [facility] [place]#:[id number] AGE/SX: 69/M ROOM: RE08/01/[address]: Dr. Issac Hunt DPM : 1950 BED: DIS: 08/01/2019 SPEC #: [id number] RECD: 08/01/19 10:01 STATUS: SHARRON BETHANY #: [id number] MELI: 08/01/19 00:[address]: Issac Hunt DEPT: SURGICAL PATHOLOGY RECD BY: Matt Cerna ENTERED: 08/01/19 10:02 SP TYPE: Cyst OTHR DR: Dr. Alistair Townsend MD Tissues: CYST Procedures: Surgery Specimen Level III HEADER OPERATION: Symptomatic hardware removal with removal of bursal/cyst mass PRE-OP DIAGNOSIS: Symptomatic hardware; bursal/cyst mass left ankle TISSUE SUBMITTED: Left ankle cyst MICROSCOPIC DIAGNOSIS Left ankle cyst: Consistent with ganglion cyst. Fragments of fibroadipose tissue and skeletal muscle tissue with reactive changes and degenerative changes in the skeletal muscle tissue. EVERARDO:arun 08/04/19 MICROSCOPIC DESCRIPTION Slides are reviewed. GROSS DESCRIPTION Received in fixative is one container labeled with the patient's name and designated left ankle cyst. The specimen consists of multiple irregular fragments of hollis soft tissue mixed with mucoid tissue that in aggregate measure 3 x 2.5 x 1 cm. The largest piece is bisected. The entire specimen is submitted in two cassettes. / EVERARDO:arun 08/01/19 TC:5 CPT: 20426
[2019-08-01 06:11] VITALS: BP 126/84; PULSE 66; RESP 16; TEMP 37; O2SAT 100; BMI 32.3
[2019-08-01] MEDS: Lactated Ringers 1,000 ML 100 ML IV (06:21)
--- NOTE | 2019-08-01 07:10 | RAD_ITS ---
STUDY: X-RAY - LEFT ANKLE REASON FOR EXAM: Male, 69 years old. POST OP; -- SYMPTOMATIC HARDWARE REMOVAL WITH REMOVAL OF BURSA/CYST MASS OF ANKLE TECHNIQUE: 3 view(s) of the ankle. COMPARISON: 06/12/2019 FINDINGS: 9 seconds of fluoroscopy of the left ankle was utilized and operating room and 3 images are submitted for interpretation. RAD/Ankle min 3 Views IMPRESSION: Fluoroscopy during surgery. Electronically Signed: Ricardo Bar MD at 12:15 EST Tel , Service support ,
--- NOTE | 2019-08-01 07:22 | DCINST_ITS ---
Discharge Diet: Light diet - advance as tolerated Discharge Activity: May not drive while taking narcotic pain medications., Use Crutches Weight Bearing Status: Partial weight bearing - Limit weightbearing on left foot. Keep left foot protected in CAM Walker boot Keep extremity elevated above heart level: Left Leg - Keep left foot/ankle elevated for at least 50 minutes of every hour Call your doctor if your incision/area has: Continuous Slow Oozing, Sudden I ncreased Bleeding, Foul Smelling Discharge Call your doctor if you observe: Fever of 101 or Higher, Shortness of breath, Chest pain, Calf discomfort, Uncontrolled pain Cleanse incision/area with: Do not get Incision Wet, Keep Dressing Clean & Dry Allergies/Adverse Reactions: Allergies Penicillins [PCN] Adverse Reaction (Severe, Verified 07/22/19 09:40) Hives Medications to take at Discharge Multivitamin with Minerals [Multiple Vitamin] 2 ea PO 0800 06/24/18 [place]-3 Fatty Acids/Fish Oil [Fish Oil 1,000 mg Capsule] 2 ea PO DAILY 06/24/18 Rosuvastatin Calcium [Crestor] 10 mg PO QHS 06/24/18 Venlafaxine HCl [Effexor] 75 mg PO QHS 06/24/18 Naproxen [Naprosyn] 500 mg PO DAILY 07/15/18 Multivitamin with Minerals [Myvitalife] 1 ea PO 2200 07/18/19 Hydrocodone/Acetaminophen [[place] 5-325 Tablet] 1 - 2 ea PO Q6H PRN PRN 3 Days #20 tab 08/01/19 The following prescriptions were given: Hydrocodone/Acetaminophen [[place] 5-325 Tablet] 1 - 2 each PO Q6H PRN PRN 3 Days #20 tablet PRN Reason: Pain Score 1-03/20 Transmission Status: Sent to [facility] Primary Care Physician: Alistair Townsend MD [Primary Care Provider] - Test Results: Test results from this visit will be discussed in further detail at your follow- up appointment, if applicable. Please Follow Up With: Issac Hunt DPM When: 1 week, sooner if needed
--- NOTE | 2019-08-01 07:24 | PCM.OPRPT ---
Report of Operation Date of Procedure: 08/01/19 Pre-Operative Diagnosis: Symptomatic hardware left ankle. Ganglion cyst/bursa left ankle Post-Operative Diagnosis: Same Surgery/Procedure Performed:: Hardware removal left ankle. 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 Jarrell Franco Type of Anesthesia:: Local Specimen's removed: Cyst removal from left ankle - sent to pathology for further evaluation Estimated Blood Loss (mL): 20mL Description of Procedure: Indications: This is a 69 year old gentleman with history of left ankle fracture s/p ORIF approximately 50 years ago. He has developed post traumatic ankle arthritis, as well as symptomatic hardware as well as cyst formation. He relates to significant pain despite nonsurgical care. Symptoms persist. He has elected to proceed forward with removal of the painful retained hardware, as well as excision of cysts from the left ankle. Patient was initially planned for MAC but he had orange juice w/ pulp so he has elected to proceed with local only. This was discussed with him in great detail, the procedure was reviewed with him as well as all of the possible benefits, risks, goals, expectations, typical/estimated healing time. He expressed understanding and agreement. The consent forms were reviewed with him and he freely signed them. All of his questions were answered. No guarantees were given nor implied. Operative Procedure: The patient was brought back to the operating room and was placed on the operating room table in the supine position. Kane was carefully secured to the operating room table with a safety belt around his waist. A time out was performed and the patient was properly identified and the surgical plan was confirmed. 900mg grams of Clindamycin IV was given for antibiotic prophylaxis. A well padded pneumatic tourniquet was applied around the left distal calf. A total of 30mL of 0.5% Bupivacaine plain was given as a local nerve block around the ankle after the overlying skin was cleansed with 70% Isopropyl alcohol. The left foot/ankle/leg were scrubbed, prepped, draped in the usual aseptic fashion. A timeout was performed and the patient was properly identified and the surgical plan was confirmed. The left foot was elevated as well as exsanguinated using an Esmarch bandage, and the left calf pneumatic tourniquet was inflated to 250mmHg. Attention was directed to the left ankle. A linear longitudinal skin incision at site of previous incision was made overlying the lateral distal fibula overlying the plate and screws. Careful dissection was completed down through the subcutaneous tissue layer down the fibular plate. The plate and screws were identified and were removed, in toto without complication. This was confirmed with intra operative fluoroscopy, images saved and printed. Of note the previous fracture was noted to be healed. Site was flushed out with copious amounts of normal saline solution. The subcutaneous tissue layer was reapproximated using 3-0 Vicryl at the incision sites. The skin was reapproximated using 3-0 Nylon. Further attention was directed to the lateral ankle. There were 2 round ganglion cysts, measures 2cm x 2cm. An incision was made overlying the cysts and dissection was completed down to the cysts. There were visualized and noted to be soft, round and well defined. There were coming off of the peroneal tendons. There were filled with yellow clear jelly like material, there were very consistent with ganglion cysts. These were very close and impinging the sural nerve. The cysts were carefully dissected out, completely excised, and sent to pathology as specimen. The remaining tissues were healthy and viable. Site was flushed out with copious amounts of normal saline solution. The subcutaneous tissue layer was reapproximated using 3-0 Vicryl at the incision sites. The skin was reapproximated using 3-0 Nylon. All vital structure, including all vital neurovascular structures were properly identified and protected as necessary throughout the procedure. The pneumatic tourniquet was deflated (total time was 49 minutes), there was immediate return of vascular flow to the foot, ankle and all toes. CFT < 2 seconds to all toes, and had normal temperature gradient present. A dressing was applied which consisted of Betadine soaked adaptic, 4x4 gauze, Kerlix and carlos dressing. The patient tolerated the above operative procedure well at the anesthesia well with no complications. The patient was transported to the recovery room with vital signs stable and in good condition. Post operative orders were placed. Post operative instructions were reviewed with patient. Protected weightbearing to the left foot, keep left foot elevated, keep dressing clean, dry and intact. Prescription for Onamia was prescribed: 1-2 tabs PO q 6 hours PRN pain for pain control. Patient to follow up in 1 week, sooner if needed. Grafts/Implants Used: None - Complications None
[2019-08-01] MEDS: Bupivacaine Mpf 0.5% 30 ML VIAL (08:10)
[2019-08-01 08:55] VITALS: BP 131/90; PULSE 66; RESP 16; TEMP 37.3; O2SAT 100
== END 2019-08-01 09:14 | disposition home or self-care (01) ==
LOC: SDC 05:46 → AC 05:48
PROVIDERS: PCP Family Medicine; Referring Provider Podiatrist; Visit Provider Podiatrist
PROC: (CPT 20680; principal; 2019-08-01 07:15)
DX: T84.84XA Pain due to internal orthopedic prosthetic devices, implants and grafts, initial encounter (principal); M67.472 Ganglion, left ankle and foot; Y79.8 Miscellaneous orthopedic devices associated with adverse incidents, not elsewhere classified; M12.572 Traumatic arthropathy, left ankle and foot
CPT/HCPCS: 20680; 27630; 73610; 76000; 88304; J7120

== ENCOUNTER → 2019-11-10 09:57 | Outpatient (CLI) | payer MEDICARE, OTHER, SELFPAY ==
[2019-10-09 11:03] VITALS: BMI 31.3
[2019-11-10 13:51] LABS: Anion Gap 8 (5-15); BUN 25 mg/dL (7-18); BUN/Creat Ratio 33.6 RATIO (10-20); Calcium,Total 9.1 mg/dL (8.5-10.1); Chloride 107 mmol/L (98-107); Cholesterol 188 mg/dL (200); Creatinine, Serum 0.74 mg/dL (0.70-1.30); EST Glomerular Filtration Rate 111 mL/min (>60); Est Glom Filt Rate - Afr Amer 135 mL/min (>60); Glucose 98 mg/dL (74-106); High Density Lipoprotein 67 mg/dL; PSA,Total - Annual Screen 2.55 ng/mL (0.00-4.00); Potassium 4.1 mmol/L (3.5-5.1); Sodium Level 139 mmol/L (136-145); Triglycerides 61 mg/dL; Very Low Density Lipoprotein 12 mg/dL (5-40)
== END ==
PROVIDERS: PCP Family Medicine; Referring Provider Family Medicine; Visit Provider Family Medicine
DX: Z00.00 Encounter for general adult medical examination without abnormal findings (principal); Z12.5 Encounter for screening for malignant neoplasm of prostate; E78.5 Hyperlipidemia, unspecified
CPT/HCPCS: 36415; 80048; 80061; 84153; G0103

== ENCOUNTER → 2020-11-11 09:03 | Outpatient (CLI) | payer MEDICARE, OTHER, SELFPAY ==
[2020-11-09 11:39] VITALS: BMI 30.7
[2020-11-11 10:33] LABS: Anion Gap 6 (5-15); BUN 20 mg/dL (7-18); Calcium,Total 9.1 mg/dL (8.5-10.1); Chloride 106 mmol/L (98-107); Cholesterol 162 mg/dL (200); Creatinine, Serum 0.67 mg/dL (0.70-1.30); EST Glomerular Filtration Rate 126 mL/min (>60); Est Glom Filt Rate - Afr Amer 152 mL/min (>60); Glucose 98 mg/dL (74-106); High Density Lipoprotein 61 mg/dL; Potassium 4.3 mmol/L (3.5-5.1); Sodium Level 141 mmol/L (136-145); Triglycerides 67 mg/dL; Very Low Density Lipoprotein 13 mg/dL (5-40)
[2020-11-11 10:57] LABS: Vitamin D,25 Hydroxy 34.8 ng/mL
== END ==
PROVIDERS: PCP Family Medicine; Referring Provider Family Medicine; Visit Provider Family Medicine
DX: Z00.00 Encounter for general adult medical examination without abnormal findings (principal); E55.9 Vitamin D deficiency, unspecified; E78.5 Hyperlipidemia, unspecified; Z12.5 Encounter for screening for malignant neoplasm of prostate
CPT/HCPCS: 36415; 80048; 80061; 82306; 84153; 84403; G0103

== ENCOUNTER → 2020-12-21 07:34 | Outpatient (CLI) | payer MEDICARE, OTHER, SELFPAY ==
[2020-11-09 11:39] VITALS: BMI 30.7
--- NOTE | 2020-12-21 07:39 | MRI_ITS ---
STUDY: MRI LEFT ANKLE WITHOUT CONTRAST REASON FOR EXAM: Left ankle pain for several years, cyst, hardware removal in July 2019. TECHNIQUE: Standardized fat and water weighted pulse sequences were obtained in all 3 orthogonal planes. COMPARISON: Radiographs 06/12/2019. FINDINGS: There is a septated ganglion cyst at the lateral aspect of the ankle (inversion recovery sagittal images 19-24) measuring approximately 4.0 x 1.7 x 4.3 cm (AP x transverse x length). There is mild edema in the lateral subcutis adipose space. Normal posterior tibialis tendon. Normal flexor digitorum longus tendon. Normal flexor hallucis longus tendon. Normal peroneus longus and brevis tendons. Normal tibialis anterior tendon. Normal extensor hallucis longus tendon. Normal extensor digitorum longus tendons. Normal Achilles tendon and teno-osseous insertion. Normal plantar fascia. Normal plantar calcaneal tubercles. Normal intrinsic muscles of the rearfoot. There is scarring of the anterior tibiofibular ligament of the distal tibiofibular syndesmotic ligamentous complex (T2 axial image 11). There is mild scarring of the anterior talofibular ligament (T2 axial image 17). There is scarring of the calcaneofibular ligament (T2 axial image 20). There are small cysts in the sinus tarsi (inversion recovery sagittal images 16-19). Normal deltoid ligamentous complexes. Normal plantar calcaneonavicular (spring) ligament. There is tibiotalar arthrosis with marginal osteophytes, chondral thinning and subchondral cystic change/bone edema of the talar dome and distal tibia (inversion recovery sagittal images 7-17). There is a small tibiotalar joint effusion (inversion recovery sagittal images 11-13). There is a small posterior subtalar joint effusion (inversion recovery sagittal images 16-18). There is a subchondral cyst of the proximal navicular at the talonavicular articulation (T1 sagittal image 12). Normal calcaneocuboid articulation. Normal navicular-cuneiform articulations. There is arthrosis of the second tarsometatarsal articulation with marginal osteophytes, chondral thinning and subchondral cystic change (T1 sagittal images 12-14). There is chronic healed fracture deformity of the distal fibula with artifact from previous hardware and cystic change of the lateral malleolus (T1 sagittal images 19, 20) with slight bone edema of the distal fibula. MRI/Lower Ext Joint Only (Routine) IMPRESSION: Ganglion cyst at the lateral aspect of the ankle. Tibiotalar arthrosis. Scarring of the anterior tibiofibular ligament, anterior talofibular ligament and calcaneofibular ligament. Arthrosis of the second tarsometatarsal articulation. Small tibiotalar and posterior subtalar joint effusions. Electronically Signed: Rodrick Colbert MD at 10:41 EDT Tel , Service support ,
== END ==
PROVIDERS: PCP Family Medicine; Referring Provider Podiatrist; Visit Provider Podiatrist
DX: M19.172 Post-traumatic osteoarthritis, left ankle and foot (principal); M67.472 Ganglion, left ankle and foot
CPT/HCPCS: 73721

== ENCOUNTER → 2021-05-03 14:05 | Outpatient (CLI) | payer MEDICARE, OTHER, SELFPAY ==
--- NOTE | 2021-05-03 14:10 | CT_ITS ---
STUDY: LEFT ANKLE CT SCAN REASON FOR EXAM: Male, 70 years old. ANKLE REPLACEMENT PROTOCOL RADIATION DOSAGE (If Supplied By Facility): CTDIvol = ( 15.35 ) mGy, DLP = ( 713.32 ) mGycm. Individualized dose optimization techniques were used for this CT.? TECHNIQUE: Axial multidetector CT scan of the left ankle. Coronal and sagittal reformatted images. COMPARISON: MRI dated 12/21/2020. FINDINGS: No acute fracture line. No acute dislocation. No acute bone destruction. Remodeling of the distal tibia and fibula. Severe hindfoot valgus. Advanced tibiotalar joint arthrosis with asymmetric joint spacing. Mild subtalar joint arthrosis. Normal calcaneocuboid joint. Mild talonavicular arthrosis. Normal navicular cuneiform joints. Mild and tarsometatarsal joint arthrosis medially (sagittal image 27 series 604). Moderate soft tissue swelling. Moderate volume ankle joint effusion. Large multiloculated lateral organized fluid collection (axial image 196 series 2 and coronal image 61 series 605) measuring 4.1 cm 3.4 [address]/Extremity Lower without Contra IMPRESSION: Distal tibia/fibular bone remodeling without acute fracture or dislocation Severe hindfoot valgus with advanced tibiotalar arthrosis Mild subtalar, talonavicular and tarsometatarsal arthrosis Large multiloculated lateral fluid collection (statistically cyst as previously characterized) Moderate soft tissue swelling and ankle joint effusion Electronically Signed: Wood Dillon DO at 12:43 EST Tel , Service support ,
== END ==
PROVIDERS: PCP Family Medicine
DX: M19.079 Primary osteoarthritis, unspecified ankle and foot (principal)
CPT/HCPCS: 73700

== ENCOUNTER → 2021-05-18 15:43 | Outpatient (CLI) | payer MEDICARE, OTHER, SELFPAY ==
--- NOTE | 2021-05-18 15:50 | RAD_ITS ---
EXAM: XR LEFT ANKLE COMPLETE, 3 OR MORE VIEWS CLINICAL INDICATION: ANKLE PAIN Technologist Notes valgus deformity left ankle TECHNIQUE: Frontal, lateral and oblique views of the left ankle. This report was created using [employer] report generation technology. COMPARISON: None. FINDINGS: BONES/JOINTS: Abnormal articulation of the ankle mortise may suggest mild dislocation. There is a calcaneal spur. Degenerative findings along the ankle mortise. No acute fracture. No sclerotic or destructive changes observed. SOFT TISSUES: Soft tissue swelling around the ankle. Lytic changes around the distal fibula may suggest osteomyelitis. No radiopaque foreign body. RAD/Ankle min 3 Views IMPRESSION: 1. Soft tissue swelling around the ankle. Lytic changes around the distal fibula may suggest osteomyelitis. 2. Abnormal articulation of the ankle mortise may suggest mild dislocation. Electronically Signed: Silver Aponte MD at 16:20 EST , Service support ,
== END ==
PROVIDERS: PCP Family Medicine
DX: M19.079 Primary osteoarthritis, unspecified ankle and foot (principal); M21.072 Valgus deformity, not elsewhere classified, left ankle
CPT/HCPCS: 73610

== ENCOUNTER → 2021-05-23 15:56 | Outpatient (CLI) | payer MEDICARE, OTHER, SELFPAY ==
--- NOTE | 2021-05-23 16:15 | RAD_ITS ---
STUDY: X-RAY - LEFT ANKLE REASON FOR EXAM: Male, 70 years old. ARTHRITIS TECHNIQUE: Single lateral view(s) of the ankle. COMPARISON: None. FINDINGS: Bones are demineralized. Lateral view shows narrowing of the space between the distal tibia and the talus. No demonstrated fracture. No calcaneal spurs, no foreign body or soft tissue swelling. Lateral view also suggests pes planus. RAD/Ankle 2 Views IMPRESSION: Pes planus with ankle mortise arthrosis, no demonstrated fracture, limited study as only a lateral view of the ankle was performed Electronically Signed: Alex Erazo MD at 17:38 EST , Service support ,
== END ==
PROVIDERS: PCP Family Medicine
DX: M21.072 Valgus deformity, not elsewhere classified, left ankle (principal); M19.072 Primary osteoarthritis, left ankle and foot
CPT/HCPCS: 73600

== ENCOUNTER 2021-08-04 10:17 | Outpatient (CLI) | payer MEDICARE, OTHER, SELFPAY ==
[2021-08-04 12:09] LABS: Absolute Lymphocyte Count 1.86 X10^3/uL (0.83-4.51); Absolute Neutrophil Count 5.5 X10^3/uL (2.0-7.7); Basophil# 0.05 X10^3/uL; Basophil% 0.6 % (0-1); Eosinophil# 0.22 X10^3/uL; Eosinophils% 2.6 % (0-5); Hematocrit 48.7 % (40-54); Hemoglobin 15.6 g/dL (13.0-16.5); Lymphocyte # 1.86 X10^3/ul (0.83-4.51); Lymphocyte % 22.2 % (19-41); Mean Corpuscular Hgb 29.6 pg (27.0-32.0); Mean Corpuscular Volume 92.4 fL (80-94); Mean Platelet Vol. 10.5 fl (6.2-12.0); Monocyte# 0.67 X10^3/uL; NRBC Flagged by Analyzer 0 % (0-5); Neutrophil # 5.49 X10^3/uL (2.7-7.7); Neutrophil % 65.6 % (47-70); Platelet Count 214 K/mm3 (150-450); RBC Distribution Width CV 12.7 % (11.6-14.6); RBC Distribution Width SD 43.2 fl (35.1-43.9); Red Blood Count 5.27 M/mm3 (4.6-6.2); White Blood Count 8.4 K/mm3 (4.4-11.0)
[2021-08-04 12:51] LABS: ALB/GLOB Ratio 1.2 RATIO (0.9-2.4); AST(SGOT) 25 U/L (15-37); Alanine Aminotransfer ALT/SGPT 26 U/L (16-61); Albumin, Serum 3.7 g/dL (3.2-5.0); Alkaline Phosphatase 89 U/L (45-117); Anion Gap 4 (5-15); BUN 21 mg/dL (7-18); BUN/Creat Ratio 28.6 RATIO (10-20); Chloride 109 mmol/L (98-107); Creatinine, Serum 0.73 mg/dL (0.70-1.30); EST Glomerular Filtration Rate 113 mL/min (>60); Est Glom Filt Rate - Afr Amer 136 mL/min (>60); Globulin 3.1 g/dL (2.2-4.2); Glucose 89 mg/dL (74-106); Potassium 4.2 mmol/L (3.5-5.1); Protein, Total 6.8 g/dL (6.4-8.2); Sodium Level 139 mmol/L (136-145)
== END 2021-08-04 23:59 | disposition home or self-care (01) ==
LOC: MFPLAB 10:21
PROVIDERS: PCP Family Medicine; Referring Provider Family Medicine; Visit Provider Family Medicine
DX: Z01.818 Encounter for other preprocedural examination (principal)
CPT/HCPCS: 36415; 80053; 85025

== ENCOUNTER 2021-12-26 09:30 | Outpatient (RCR) | payer MEDICARE, OTHER, SELFPAY ==
--- NOTE | 2021-10-06 16:44 | HP.PTEVAL_ITS ---
Patient's Visit Information LO SHUKLA is a 71 year old M referred to Physical Therapy by HALI DE LEON with a diagnosis of L Total ankle replacement 08/10/21. Date of Evaluation: 10/06/21 Physical Therapist: Wood Jacobson, DPT, OCS, CSCS - Visit Plan Frequency: 3x /Week Duration: 4-6 Weeks Plan: 3x/week for 3-6 weeks for. 1. Manual therapy for MT mobs, calcaneal mobs, ankle mobs , gastroc and soleus rollout and stretch into DF and PF , PROM ankle and scar massage. 2. progression of wB gait and strength /proprioceptive exercises. Pt is WBAT in brace. ice as needed. - Subjective L ankle replacement on 08/10/21 due to severe OA. had previous ankle sprains and fracture yrs ago. Knee walker used at home or two crutches. Has been in cam boot for the last 8 weeks, Shoe with brace for 4 days and until sees doctor in a few weeks. No exercises yet. Doctor wants PT. Pain is not a problem. Sore when I walk on it and end of day. Sleep is OK. 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 Basic ADLs are getting done. Light chores are OK, heavy chores. Feels like foot does not come up all they way. Hobbies: wants to hike [place] and fish [employer]. Did them last fall. - Pain L ankle Pain Intensity (Out of 10): 0 Pain Intensity Range: 0, 2 Comment: oot. - Objective L AROM ankle 0 Df, 20 PF, 15 inv and 12 eversion. L ankle strength 4- ev and inv and 4 DF and 3+ PF. incision top of foot is healed well and scarred down to bone in places. no signs of redness heat or swelling. Very little to no arthrokinematic movement calcaneus, talus with tibia. Metatarsals are stiff on L, big toes moves and 4+ strength without pain. Mildly swollen as expected, very stiff. Walks with antalgia and foot turned out avoiding excessive Df on L but safe and I with brace and shoe today. Steps reciprocal with rail, stiffness obvious L and hell landing on L with descending. transfers are I. dons and doffs brace and shoe I. - Balance/Special Test Scores Lower Extremity Functional Score: 40 - Goals Goal 1:: ankle AROM 7 Df, 50 PF, 22 inv and 15 eversion to aid in walking without pain. Goal Time Frame: 4-6 Weeks Goal 2:: Walk without antalgia or gait deviations in and out of PT Goal Time Frame: 4-6 Weeks Goal 3:: Up and down steps reciprocally without rail Goal Time Frame: 4-6 Weeks Goal 4:: I management of condition Goal Time Frame: 4-6 Weeks Goal 5:: LEFS 60/80 Goal Time Frame: 4-6 Weeks - Rehabilitation Potential Physical Therapy Diagnosis: L ankle replacement and resulting stiffness and difficulty walking. Rehabilitation Potential: Good - Anticipated Interventions Patient/Client Instruction: Educate patient on: Condition, Plan of Care For the Purpose of:: To decrease pain, To increase ROM, To improve muscle performance and motor function, To increase tolerance to activity/condition/position, To improve ability of physical actions for home/community/work/leisure Therapeutic Exercise to Include: Strength training, Balance training, Flexibilty training, Passive ROM, Active ROM For the Purpose of:: To decrease pain, To improve muscle performance and motor function, To increase tolerance to activity/condition/position, To improve gait and locomotor functions Manual Therapy Techniques to Include: Scar massage, Mobilization, Passive ROM, Soft tissue mobilization For the Purpose of:: To increase ROM, To increase tolerance to acti vity/condition/position Cryotherapy (ice pack, ice massage): Yes For the Purpose of:: To decrease swelling/inflammation Thank you for the opportunity to evaluate your patient. For Medicare and Medicare HMO plans, please review the plan of care and approve it. It will need to be FAXED BACK to us at [phone] for Medicare purposes. For Medicare only, by signing this I certify the plan of care. Please let me know if there are questions or concerns regarding this plan of care. Physician Signature: Date:
--- NOTE | 2021-10-28 10:04 | HP.PTREVAL_ITS ---
HALI DE LEON, It has been my pleasure to treat LO SHUKLA over the last 10 visits for L Total ankle replacement 08/10/21. Please see the progress note below for an update on the physical therapy plan of care! Subjective: Discomfort is much better. Comfortable at rest. Very active yesterday afternoon and it gets sore 2/10 laterally. takes ibuprofen when needed and sleeping fine. Feels great walking in today. ROM is proceeding nicely. HEP sometimes. To doctor in 5 weeks. Will be in brace for another 5 weeks and doctor last week said he was doing great. Objective/Function: 0 DF, 50 PF, 25 inv and 10 eversion. Strength 4+ in DF, ev, inv, Able to double leg heel raise but single leg left challenging. Walking is I but early heel off due to lack of DF and weakness in calf. SLS L is 3 seconds and R is 30 seconds. Overall doing very wella dn appropriate to continue PT 4 weeks toward same goals with fair prognosis. Plan Plan: 3x/week for 4 weeks for. ne wPOC. 1. ankle scarring massage to anterior and joint mobs for DF and PROM. 2. Stretching into DF and strength. progression of gait, proprioception and strength. Balance/Gait/Functional tests - Balance/Special Test Scores Lower Extremity Functional Score: 58 Goals Goal 1:: ankle AROM 7 Df, 50 PF, 22 inv and 15 eversion to aid in walking without pain. Goal Time Frame: 4-6 Weeks Goal Progress: Progressing Goal 2:: Walk without antalgia or gait deviations in and out of PT Goal Time Frame: 4-6 Weeks Goal Progress: Progressing Goal 3:: Up and down steps reciprocally without rail Goal Time Frame: 4-6 Weeks Goal Progress: down onto hindfoot. Goal 4:: I management of condition Goal Time Frame: 4-6 Weeks Goal Progress: Progressing Goal 5:: LEFS 60/80 Goal Time Frame: 4-6 Weeks Goal Progress: Progressing Anticipated Interventions Patient/Client Instruction: Educate patient on: Condition, Plan of Care For the Purpose of:: To decrease pain, To increase ROM, To improve muscle perfor norbert and motor function, To increase tolerance to activity/condition/position, To improve ability of physical actions for home/community/work/leisure Therapeutic Exercise to Include: Strength training, Balance training, Flexibilty training, Passive ROM, Active ROM For the Purpose of:: To decrease pain, To improve muscle performance and motor function, To increase tolerance to activity/condition/position, To improve gait and locomotor functions Manual Therapy Techniques to Include: Scar massage, Mobilization, Passive ROM, Soft tissue mobilization For the Purpose of:: To increase ROM, To increase tolerance to activity/condition/position Cryotherapy (ice pack, ice massage): Yes For the Purpose of:: To decrease swelling/inflammation Please do not hesitate to contact me at [phone] by phone or if you have questions or concerns regarding this new plan of care! Sincerely, Wood Jacobson, DPT, OCS, CSCS
--- NOTE | 2021-12-02 10:29 | HP.PTREVAL ---
HALI DE LEON, It has been my pleasure to treat LO SHUKLA over the last 22 visits for L Total ankle replacement 08/10/21. Please see the progress note below for an update on the physical therapy plan of care! Subjective: Pt feels good and got full relase from to not wear his brace. He has been back to work and on feet about 1/2 the time. He has a little bit of pain after resting and goes away after a few steps. Even if he is on it a lot during the day his pain has been min in the evening being on it all day Objective/Function: Pt not able to single leg on the L PF or DF. Stairs: up and down recip with hand rail with decrease push off. Gait: Walks with good heel to toe gait pattern with increase L hip drop and slightly decreased push off. L ankle AROM: 5 to 2g degrees PF and IV/EV 12 degrees and 10 degrees Plan Plan: 3x/week for 3 weeks for. new POC. 1. ankle scarring massage to anterior and joint mobs for DF and PROM. 2. Stretching into DF and strength. progression of gait, proprioception and strength. 3. Add some hip abd strength to B hips due to hip drop with gait Balance/Gait/Functional tests - Balance/Special Test Scores Lower Extremity Functional Score: 68 Goals Goal 1:: ankle AROM 7 Df, 50 PF, 22 inv and 15 eversion to aid in walking without pain. Goal Time Frame: 4-6 Weeks Goal Progress: Progressing Goal 2:: Walk without antalgia or gait deviations in and out of PT Goal Time Frame: 4-6 Weeks Goal Progress: Progressing Goal 3:: Up and down steps reciprocally without rail Goal Time Frame: 4-6 Weeks Goal Progress: decrease push off Goal 4:: I management of condition Goal Time Frame: 4-6 Weeks Goal Progress: Progressing Goal 5:: LEFS 60/80 Goal Time Frame: 4-6 Weeks Goal Progress: Progressing Anticipated Interventions Patient/Client Instruction: Educate patient on: Condition, Plan of Care For the Purpose of:: To decrease pain, To increase ROM, To improve muscle performance and motor function, To increase tolerance to activity/condition/position, To improve ability of physical actions for home/community/work/leisure Therapeutic Exercise to Include: Strength training, Balance training, Flexibilty training, Passive ROM, Active ROM For the Purpose of:: To decrease pain, To improve muscle performance and motor function, To increase tolerance to activity/condition/position, To improve gait and locomotor functions Manual Therapy Techniques to Include: Scar massage, Mobilization, Passive ROM, Soft tissue mobilization For the Purpose of:: To increase ROM, To increase tolerance to activity/condition/position Cryotherapy (ice pack, ice massage): Yes For the Purpose of:: To decrease swelling/inflammation Please do not hesitate to contact me at [phone] by phone or if you have questions or concerns regarding this new plan of care! Sincerely, Gogo Lewis, MPT
--- NOTE | 2021-12-26 09:53 | HP.PTDCSUM ---
It has been my pleasure to treat LO SHUKLA referred by HALI DE LEON, with the diagnosis of L Total ankle replacement 08/10/21 for a total of 30 visit(s). Discharge Date: 12/26/21 Please see the following information for a summary of their discharge status. Subjective: Pretty darn close to 100%. Tolerating workouts well. Sleeping well. No pain. Activities are normal. Motion is lamost full. To doctor in a month. Wants a break form therapy. Will do bike and elliptical at home. Does some ankle ROM at home.Walking alot. L ankle Pain Intensity (Out of 10): 0 % Improvement: 99 Objective/Function: 4 degree DF similar to contralaeral, 52 PF, 8 eversion and 22 inversion. Strength is 4 + on PF L and 5/ R otherwise 4+ B and symmetrical. Goal 1:: ankle AROM 7 Df, 50 PF, 22 inv and 15 eversion to aid in walking without pain. Goal Progress: met except DF 4 degrees. Goal 2:: Walk without antalgia or gait deviations in and out of PT Goal Progress: Goal Met Goal 3:: Up and down steps reciprocally without rail Goal Progress: Goal Met Goal 4:: I management of condition Goal Progress: Goal Met Goal 5:: LEFS 60/80 Goal Progress: Goal Met Plan: d/c to [facility] Discharge Comments: To doctor in one month. If there are questions or concerns regarding this patient's physical therapy, please feel free to call me at [phone]. Thank you for the referral of this patient. Sincerely, Wood Jacobson, DPT, OCS, CSCS Balance/Gait/Functional tests - Balance/Special Test Scores Lower Extremity Functional Score: 66
== END 2021-12-26 19:00 | disposition home or self-care (01) ==
LOC: PT 09:30
PROVIDERS: PCP Family Medicine
DX: M19.079 Primary osteoarthritis, unspecified ankle and foot (principal); M25.572 Pain in left ankle and joints of left foot; G89.29 Other chronic pain; Z98.890 Other specified postprocedural states
CPT/HCPCS: 97110; 97140; 97161; 97164; 97530

== ENCOUNTER → 2021-12-30 | Outpatient (CLI) | payer MEDICARE, OTHER, SELFPAY ==
[2021-12-30 10:25] LABS: ALB/GLOB Ratio 1.3 RATIO (0.9-2.4); AST(SGOT) 18 U/L (15-37); Alanine Aminotransfer ALT/SGPT 18 U/L (16-61); Albumin, Serum 3.8 g/dL (3.2-5.0); Alkaline Phosphatase 95 U/L (45-117); Anion Gap 5 (5-15); BUN 25 mg/dL (7-18); BUN/Creat Ratio 32.9 RATIO (10-20); Calcium,Total 9.1 mg/dL (8.5-10.1); Chloride 109 mmol/L (98-107); Cholesterol 170 mg/dL (200); Creatinine, Serum 0.76 mg/dL (0.70-1.30); EST Glomerular Filtration Rate 108 mL/min (>60); Est Glom Filt Rate - Afr Amer 131 mL/min (>60); Globulin 2.9 g/dL (2.2-4.2); Glucose 105 mg/dL (74-106); High Density Lipoprotein 64 mg/dL; PSA,Total - Annual Screen 1.99 ng/mL (0.00-4.00); Potassium 4.3 mmol/L (3.5-5.1); Protein, Total 6.7 g/dL (6.4-8.2); Sodium Level 139 mmol/L (136-145); Triglycerides 67 mg/dL; Very Low Density Lipoprotein 13 mg/dL (5-40)
== END | disposition home or self-care (01) ==
LOC: MFPLAB 08:39
PROVIDERS: PCP Family Medicine; Referring Provider Family Medicine; Visit Provider Family Medicine
DX: Z00.00 Encounter for general adult medical examination without abnormal findings (principal); E78.5 Hyperlipidemia, unspecified; Z12.5 Encounter for screening for malignant neoplasm of prostate
CPT/HCPCS: 36415; 80053; 80061; 84153; G0103

== ENCOUNTER 2022-08-18 06:20 | Day surgery (SDC) | payer MEDICARE, OTHER, SELFPAY ==
[2022-08-18 06:48] VITALS: BP 120/98; PULSE 66; RESP 18; TEMP 36.7; O2SAT 99; BMI 32.3
[2022-08-18] MEDS: Lactated Ringers 1,000 ML 15 ML IV (06:52)
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
[2022-08-18 07:45] VITALS: BP 120/98; BP 124/89; PULSE 76; RESP 12; TEMP 36.8; O2SAT 98
--- NOTE | 2022-08-18 07:47 | OP.COLON_ITS ---
Patient Name: Carlos Biggs Procedure Date: 08/18/2022 7:22 AM Date of : 1950 Age: 72 Procedure: Colonoscopy Indications: High risk colon cancer surveillance: Personal history of colon cancer Providers: Guillaume Berg MD Medicines: Monitored Anesthesia Care Patient Profile: This is a 72 year old male. Refer to note in patient chart for documentation of history and physical. Last Colonoscopy: 3 years ago. Complications: No immediate complications. Procedure: Pre-Anesthesia Assessment: - Prior to the procedure, a History and Physical was performed, and patient medications and allergies were reviewed. The patient's tolerance of previous anesthesia was also reviewed. The risks and benefits of the procedure and the sedation options and risks were discussed with the patient. All questions were answered, and informed consent was obtained. Prior Anticoagulants: The patient has taken no previous anticoagulant or antiplatelet agents. After reviewing the risks and benefits, the patient was deemed in satisfactory condition to undergo the procedure. After I obtained informed consent, the scope was passed under direct vision. Throughout the procedure, the patient's blood pressure, pulse, and oxygen saturations were monitored continuously. The colonoscope was introduced through the anus and advanced to the cecum, identified by appendiceal orifice and ileocecal valve. The colonoscopy was performed without difficulty. The patient tolerated the procedure well. The quality of the bowel preparation was good. Scope In: 7:31:04 AM Scope Withdrawal Time 0 hours 6 minutes 0 seconds Scope Out: 7:42:30 AM Total Procedure Duration Time 0 hours 11 minutes 26 seconds Findings: The entire examined colon appeared normal on direct and retroflexion views. Impression: - The entire examined colon is normal on direct and retroflexion views. - No specimens collected. Recommendation: - Discharge patient to home. - Resume previous diet. - Continue present medications. - Repeat colonoscopy in 3 years for surveillance. Procedure Code(s): --- Professional --- 42527, Colonoscopy, flexible; diagnostic, including collection of specimen(s) by brushing or washing, when performed (separate procedure) Diagnosis Code(s): --- Professional --- Z85.038, Personal history of other malignant neoplasm of large intestine CPT copyright 2017 [employer] [place] [employer]. All rights reserved. The codes documented in this report are preliminary and upon screen door maker review may be revised to meet current compliance requirements. Guillaume Berg MD 08/18/2022 7:46:18 AM This report has been signed electronically. Number of Addenda: 0 Note Initiated On: 08/18/2022 7:22 AM
--- NOTE | 2022-08-18 07:47 | OP.CCLET_ITS ---
08/18/2022 Alistair Townsend MD [address] [phone] Re : Colonoscopy procedure for Carlos Biggs Dear Dr. Townsend This procedure was performed on Thursday, August 18, 2022. My impressions and recommendations are as follows: Impressions : - The entire examined colon is normal on direct and retroflexion views. - No specimens collected. Recommendations : - Discharge patient to home. - Resume previous diet. - Continue present medications. - Repeat colonoscopy in 3 years for surveillance. My findings are described in the full procedure note, which is enclosed. If I can be of further assistance, please feel free to contact me at Doctor phone number(s): , Work: . Sincerely, Guillaume Berg MD 08/18/2022 7:46:18 AM This report has been signed electronically.
[2022-08-18 07:50] VITALS: BP 115/91; BP 120/98; PULSE 71; RESP 16; O2SAT 98
[2022-08-18 07:55] VITALS: BP 120/98; BP 132/91; PULSE 66; RESP 16; O2SAT 97
[2022-08-18 08:00] VITALS: BP 120/98; BP 123/87; PULSE 66; RESP 16; TEMP 36.7; O2SAT 97
[2022-08-18 08:11] VITALS: BP 120/98
== END 2022-08-18 08:25 | disposition home or self-care (01) ==
LOC: EN 06:21 → AC 06:22
PROVIDERS: PCP Family Medicine; Referring Provider Family Medicine; Visit Provider Surgery
PROC: 0DJD8ZZ Inspection of Lower Intestinal Tract, Via Natural or Artificial Opening Endoscopic (ICD-10-PCS; CPT 45378; principal; 2022-08-18 07:25)
DX: Z12.11 Encounter for screening for malignant neoplasm of colon (principal); E78.00 Pure hypercholesterolemia, unspecified; F17.290 Nicotine dependence, other tobacco product, uncomplicated; Z79.899 Other long term (current) drug therapy; Z85.038 Personal history of other malignant neoplasm of large intestine
CPT/HCPCS: 45378; J7120; J2405

== ENCOUNTER → 2023-10-01 | Outpatient (CLI) | payer MEDICARE, OTHER, SELFPAY ==
[2023-10-01 12:35] LABS: Anion Gap 4 (5-15); BUN 27 mg/dL (7-18); BUN/Creat Ratio 31.5 RATIO (10-20); Calcium,Total 8.8 mg/dL (8.5-10.1); Chloride 109 mmol/L (98-107); Cholesterol 156 mg/dL (200); Creatinine, Serum 0.86 mg/dL (0.70-1.30); EST Glomerular Filtration Rate 94 mL/min (>60); Est Glom Filt Rate - Afr Amer 113 mL/min (>60); Glucose 103 mg/dL (74-106); High Density Lipoprotein 62 mg/dL; Potassium 4.2 mmol/L (3.5-5.1); Sodium Level 139 mmol/L (136-145); Triglycerides 54 mg/dL; Very Low Density Lipoprotein 11 mg/dL (5-40)
== END | disposition home or self-care (01) ==
LOC: MFPLAB 10:49
PROVIDERS: PCP Family Medicine; Visit Provider Family Medicine
DX: Z00.00 Encounter for general adult medical examination without abnormal findings (principal)
CPT/HCPCS: 36415; 80048; 80061; 84153

== ENCOUNTER → 2024-10-29 | Outpatient (CLI) | payer MEDICARE, SELFPAY ==
[2024-10-29 13:38] LABS: ALB/GLOB Ratio 1.9 RATIO (0.9-2.4); AST(SGOT) 27 U/L (<=37); Alanine Aminotransfer ALT/SGPT 13 U/L (<=46); Albumin, Serum 4.2 g/dL (3.4-4.8); Alkaline Phosphatase 88 U/L (40-129); Anion Gap 10 (5-15); BUN 22 mg/dL (4-19); Calcium,Total 9.5 mg/dL (7.6-11.0); Carbon Dioxide 23.2 mmol/L (21.0-32.0); Chloride 106 mmol/L (98-108); Cholesterol 160 mg/dL (<=200); Creatinine, Serum 0.74 mg/dL (0.70-1.20); EST Glomerular Filtration Rate 96 (>60); Globulin 2.2 g/dL (2.2-4.2); Glucose 98 mg/dL (70-99); High Density Lipoprotein 59 mg/dL; Low Density Lipoprotein Calc. 89 mg/dL; PSA,Total- Diagnostic 1.72 ng/mL (0.00-4.00); Potassium 4.2 mmol/L (3.3-5.1); Protein, Total 6.4 g/dL (5.9-8.4); Sodium Level 139 mmol/L (133-145); Total Bilirubin 0.47 mg/dL (0.00-1.30); Triglycerides 57 mg/dL; Very Low Density Lipoprotein 11 mg/dL (5-40)
== END | disposition home or self-care (01) ==
LOC: MFPLAB 09:27
PROVIDERS: PCP Family Medicine; Referring Provider Family Medicine; Visit Provider Family Medicine
DX: Z00.00 Encounter for general adult medical examination without abnormal findings (principal)
CPT/HCPCS: 36415; 80053; 80061; 84153

== ENCOUNTER → 2025-04-29 | Outpatient (CLI) | payer MEDICARE, SELFPAY ==
[2025-04-29 12:51] LABS: Anion Gap 9 (5-15); BUN 22 mg/dL (4-19); BUN/Creat Ratio 29.3 RATIO (10-20); Calcium,Total 9.6 mg/dL (7.6-11.0); Carbon Dioxide 24.1 mmol/L (21.0-32.0); Chloride 105 mmol/L (98-108); Cholesterol 157 mg/dL (<=200); Glucose 100 mg/dL (70-99); Low Density Lipoprotein Calc. 88 mg/dL; Potassium 4.3 mmol/L (3.3-5.1); Triglycerides 63 mg/dL; Very Low Density Lipoprotein 13 mg/dL (5-40); cholesterol:hdl ratio screen 2.77
== END | disposition home or self-care (01) ==
LOC: MFPLAB 09:14
PROVIDERS: PCP Family Medicine; Visit Provider Family Medicine
DX: E78.5 Hyperlipidemia, unspecified (principal)
CPT/HCPCS: 36415; 80048; 80061